=== PATIENT | female | born 1940 | race Caucasian/White ===

== ENCOUNTER → 2017-08-30 12:30 | Outpatient (CLI) | payer MEDICARE, OTHER, SELFPAY ==
--- NOTE | 2017-08-30 | CA_ITS ---
PROCEDURE: 2-D M-mode and color Doppler study INDICATIONS FOR THE TEST: Chest pain COPD Heart Murmur+ Tobacco Smoking Palpitations+ Fatigue Syncope Edema Hypertension+Diabetes Mellitus+ Rheumatic Fever+ SOB+MARTI+Obesity+Hyperlipidemia+ Family History HD Additional History PATIENT INFORMATION HEIGHT: 62 WEIGHT: 170 GENDER: Female B/P: 157/78 2-D/M-MODE INTERPRETATION: 2-D MEASUREMENTS OBSERVED VALUES IN CMS Right Ventricular Dimension (RVDd) 1.8 Interventricular Septum (Thickness)(IVsd) 1.2 Left Ventricular Internal Dimensions(LVIDd) 4.2 Left Ventricular Posterior Wall (Thickness)(LVPWd) 1.1 Aortic Root 2.5 Aortic Cusp Separation 2.0 Left Atrial Dimensions (LAD) 4.1 2D 1. Left atrium is mildly enlarged, left ventricle is normal size, there is mild concentric left ventricular hypertrophy, visually estimated ejection fraction 55% with no obvious regional wall motion abnormality. 2. The right atrium and right ventricle are normal size and contractility. 3. The aortic valve is thickened and calcified leaflet continue to display good mobility. 4. The mitral and tricuspid valve leaflets are minimally thickened. 5. The pulmonic valve is poorly visualized. 6. No significant pericardial effusion noted. DOPPLER INTERROGATION: Doppler interrogation of the aortic, mitral and tricuspid valvular presence of mild mitral and tricuspid regurgitation, calculated right ventricular systolic pressure is 36 mmHg, diastolic parameters are inconclusive. CONCLUSION: 1. Mildly enlarged left atrium, normal left ventricular size, mild concentric left ventricular hypertrophy, visually estimated ejection fraction 55% with no obvious regional wall motion abnormality, diastolic parameters are inconclusive. 2. Thickened and calcified aortic valve without significant aortic stenosis aortic insufficiency. 3. Mild mitral and tricuspid regurgitation 4. No significant pericardial effusion noted.
--- NOTE | 2017-08-30 13:47 | US_ITS ---
US kidney retroperitoneal comp HISTORY: Stage III renal disease ITS.REASON: AORTIC SYSTOLIC MURMUR/STAGE 3 CKD ORDERING PHYSICIAN: Gerry Morgan MD PATIENT AGE: 77 years COMPARISON: None FINDINGS: RIGHT KIDNEY: Right kidney measures 10 x 4 x 5.7 cm. A 1 7-m cyst is present in the lower pole the right kidney. A 12 mm x 14 mm cyst is present in the lower pole laterally. No cortical thinning or hydronephrosis. LEFT KIDNEY:Left kidney measures 9 x 5 x 5 cm. No hydronephrosis or cortical thinning OTHER FINDINGS: No obvious renal mass. Bilateral blood flow is present IMPRESSION: No hydronephrosis. 2 right renal cysts
== END ==
PROVIDERS: Family Provider Family Medicine; PCP Family Medicine; Visit Provider Family Medicine
DX: I35.8 Other nonrheumatic aortic valve disorders (principal); N18.3 Chronic kidney disease, stage 3 (moderate); I10 Essential (primary) hypertension
CPT/HCPCS: 76770; 93306

== ENCOUNTER → 2017-10-18 13:02 | Outpatient (CLI) | payer MEDICARE, OTHER, SELFPAY ==
--- NOTE | 2017-10-18 13:17 | XR_ITS ---
XR knee LT 3V HISTORY: ITS.REASON: LEFT FOOT AND KNEE PAIN ORDERING PHYSICIAN: Gerry Morgan MD PATIENT AGE: 77 years COMPARISON: FINDINGS: There are minimal osteoarthritic changes of the medial compartment and patellofemoral joint. No fracture or dislocation. No lytic or blastic change. A well-circumscribed rounded soft tissue calcification is present along the anterior medial aspect of the knee measuring 7 mm nonspecific could be due to old injury or a phlebolith. IMPRESSION: Minimal osteoarthritic change of the medial compartment and patellofemoral joint
--- NOTE | 2017-10-18 13:17 | XR_ITS ---
XR foot LT min 3V HISTORY: Left foot pain ITS.REASON: LEFT FOOT AND KNEE PAIN ORDERING PHYSICIAN: Gerry Morgan MD PATIENT AGE: 77 years FINDINGS: There is [id number] hallux valgus with first metatarsophalangeal angle of 32 degrees with mild osteoarthritic change of the first MTP joint and mild hypertrophic changes of the distal aspect of the first metatarsal. No acute fracture or dislocation. No lytic or blastic change. IMPRESSION: Hallux valgus with osteoarthritic change and hypertrophic change of the first MTP joint
== END ==
PROVIDERS: PCP Family Medicine; Visit Provider Family Medicine
DX: M25.562 Pain in left knee (principal); M79.672 Pain in left foot
CPT/HCPCS: 73562; 73630

== ENCOUNTER → 2017-11-07 11:55 | Outpatient (CLI) | payer MEDICARE, OTHER, SELFPAY ==
[2017-11-07 12:02] LABS: Microscopic, Urine URINE MICROSCOPIC (MICROSCOPIC)
[2017-11-07 12:22] LABS: Appearance,Urine CLEAR (Clear); Bilirubin,Urine Negative (Negative); Blood, Urine Negative (Negative); Color,Urine YELLOW (Yellow); Glucose,Urine (UA) Negative (Negative); Ketones,Urine Negative (Negative); Leukocyte Esterase,Urine Negative (Negative); Nitrate,Urine Negative (Negative); Protein,Urine Negative (Negative); Urobilinogen,Urine 0.2 EU/dl (0.2)
[2017-11-07 12:23] LABS: Basophils % 0.4 % (0.1-2.0); Eosinophils # 0.1 K/mm3 (0.0-0.4); Eosinophils % 1.6 % (0.1-12.0); Hematocrit 31.2 % (37.0-47.0); Hemoglobin 10.1 g/dL (12.2-16.2); Lymphocytes # 1.6 K/mm3 (0.7-4.5); Lymphocytes % 31.7 K/mm3 (10-50); Mean Corpuscular HGB Conc 32.2 g/dL (31.8-35.4); Mean Corpuscular Hemoglobin 28.1 pg (27.0-31.2); Mean Corpuscular Volume 87.3 fl (81-99); Mean Platelet Volume 7.9 fl (7.4-10.4); Monocytes # 0.4 K/mm3 (0.1-1.0); Monocytes % 8.3 % (1.7-9.3); Platelet Count 316 K/mm3 (142-424); Red Blood Count 3.58 M/mm3 (4.20-5.40); White Blood Count 5.1 K/mm3 (4.8-10.8)
[2017-11-07 12:35] LABS: Bacteria,Urine 1+ /lpf; Squamous Epithelial Cell,Urine Occasional #/hpf (0-5); WBC,Urine Occasional #/hpf (0-3)
[2017-11-07 13:14] LABS: Creatinine,Urine Random 65 mg/dL (20-320)
[2017-11-07 13:35] LABS: Albumin Level 3.4 gm/dL (3.4-5.0); Anion Gap 11.5 mEq/L (5-15); Blood Urea Nitrogen 49 mg/dL (7-18); Calcium 9.4 mg/dL (8.5-10.1); Carbon Dioxide 28 mmol/L (21.0-32.0); Chloride 105 mmol/L (98-107); Creatinine,Serum 1.84 mg/dL (0.55-1.02); Estimated Glomerular Filt Rate 27 ml/min (>60); GFR (African American) 32 ML/MIN (>60); Glucose 100 mg/dL (74-106); Phosphorous 4.6 mg/dL (2.4-4.9); Potassium 4.5 mmoL/L (3.5-5.1); Sodium 140 mmol/L (136-145)
== END ==
PROVIDERS: Visit Provider Internal Medicine Nephrology
DX: N18.9 Chronic kidney disease, unspecified (principal)
CPT/HCPCS: 36415; 80069; 81001; 82570; 84155; 85025

== ENCOUNTER → 2017-12-01 07:45 | Outpatient (CLI) | payer MEDICARE, OTHER, SELFPAY ==
--- NOTE | 2017-12-01 07:51 | AS_ITS ---
Renal Arterial Duplex Indications: 405.91 Unspecified renovascular hypertension. IMPRESSIONS 1. The right renal artery appears normal. 2. The left renal artery appears normal. 3. No evidence of renal artery stenosis, bilaterally. The left kidney is slightly smaller than the right. 2 Incidental right renal cysts. Complete renal arterial duplex. Duplex scan and Doppler flow study including spectral analysis, color and talavera scale imaging. Height: Height: 157.5cm. Height: 62in. Weight: Weight: 74.8kg. Weight: 164.7lb. Body mass index: BMI: 30.2kg/m^2. Body surface area: BSA: 1.84m^2. Location: Vascular laboratory. Patient status: Outpatient. Tables: Arterial flow: + +--------+--------+---------+ Location V sys V ed Resistive + +--------+--------+---------+ Aorta - mid 102cm/s 13cm/s 0.87 + +--------+--------+---------+ Right renal - proximal 104cm/s 15.5cm/s --------- + +--------+--------+---------+ Right renal - mid 99.4cm/s 16.6cm/s --------- + +--------+--------+---------+ Right renal - distal 94.4cm/s 22.4cm/s --------- + +--------+--------+---------+ Left renal - proximal 72.8cm/s 11.1cm/s --------- + +--------+--------+---------+ Left renal - mid 116cm/s 18.4cm/s --------- + +--------+--------+---------+ Left renal - distal 109cm/s 21.2cm/s --------- + +--------+--------+---------+ Left renal - Origin 80cm/s 18cm/s 0.78 + +--------+--------+---------+ Artery mapping: + +--------+ + Location Diameter Comment + +--------+ + Abdominal aorta - mid 1.9mm + +--------+ + Aorta - mid -------- 102/13 cm/s + +--------+ + Renal anatomy: + +-----+------+ Left Right + +-----+------+ Long axis 9.1cm 10.2cm + +-----+------+ Short axis 4.9cm 4.6cm + +-----+------+ Velocity ratios: + +-----+ V sys + +-----+ Right renal/aortic 1 + +-----+ Left renal/aortic 1.1 + +-----+ (Report amended ) Electronically signed by: Casey Solis [id number]
== END ==
PROVIDERS: Family Provider Family Medicine; PCP Family Medicine; Visit Provider Hospitalist
DX: N18.3 Chronic kidney disease, stage 3 (moderate) (principal)
CPT/HCPCS: 93976

== ENCOUNTER → 2017-12-12 10:12 | Outpatient (CLI) | payer MEDICARE, OTHER, SELFPAY ==
[2017-12-12 10:37] LABS: Microscopic, Urine URINE MICROSCOPIC (MICROSCOPIC)
[2017-12-12 11:32] LABS: Basophils % 0.6 % (0.1-2.0); Eosinophils # 0.1 K/mm3 (0.0-0.4); Eosinophils % 1.7 % (0.1-12.0); Hematocrit 34.2 % (37.0-47.0); Hemoglobin 10.4 g/dL (12.2-16.2); Lymphocytes # 1.8 K/mm3 (0.7-4.5); Lymphocytes % 36.4 K/mm3 (10-50); Mean Corpuscular HGB Conc 30.4 g/dL (31.8-35.4); Mean Corpuscular Hemoglobin 26.5 pg (27.0-31.2); Mean Corpuscular Volume 87.2 fl (81-99); Mean Platelet Volume 7.8 fl (7.4-10.4); Monocytes # 0.4 K/mm3 (0.1-1.0); Monocytes % 8.5 % (1.7-9.3); Neutrophils # 2.6 K/mm3 (1.8-7.8); Neutrophils % 52.8 % (37.0-80.0); Platelet Count 333 K/mm3 (142-424); Red Blood Count 3.92 M/mm3 (4.20-5.40); Red Cell Distribution Width 13.2 % (11.5-17.5); White Blood Count 4.9 K/mm3 (4.8-10.8)
[2017-12-12 12:28] LABS: Appearance,Urine CLEAR (Clear); Bilirubin,Urine Negative (Negative); Blood, Urine TRACE-I (Negative); Color,Urine YELLOW (Yellow); Glucose,Urine (UA) Negative (Negative); Ketones,Urine Negative (Negative); Leukocyte Esterase,Urine Negative (Negative); Nitrate,Urine Negative (Negative); PH,Urine 5.5 (5.0-8.5); Protein,Urine Negative (Negative); Specific Gravity, Urine 1.015 (1.005-1.030); Urobilinogen,Urine 0.2 EU/dl (0.2)
[2017-12-12 12:33] LABS: Chloride 107 mmol/L (98-107); Creatinine,Urine Random 54 mg/dL (20-320); Potassium 4.3 mmoL/L (3.5-5.1); Sodium 144 mmol/L (136-145); Total Protein,Urine Random 9.1 mg/dL (0.0-11.9)
[2017-12-12 12:45] LABS: Bacteria,Urine 1+ /lpf; Hyaline Casts,Urine Occasional #/lpf (0); Mucus,Urine Trace /lpf; RBC,Urine Occasional #/hpf (0-3); WBC,Urine Occasional #/hpf (0-3)
[2017-12-12 12:46] LABS: Squamous Epithelial Cell,Urine Occasional #/hpf (0-5)
[2017-12-12 13:06] LABS: Albumin Level 3.4 gm/dL (3.4-5.0); Anion Gap 17.3 mEq/L (5-15); Blood Urea Nitrogen 54 mg/dL (7-18); Calcium 9.4 mg/dL (8.5-10.1); Carbon Dioxide 24 mmol/L (21.0-32.0); Creatinine,Serum 1.91 mg/dL (0.55-1.02); Estimated Glomerular Filt Rate 26 ml/min (>60); Ferritin 37 ng/mL (8-388); GFR (African American) 31 ML/MIN (>60); Glucose 90 mg/dL (74-106); Phosphorous 4.9 mg/dL (2.4-4.9)
[2017-12-12 13:38] LABS: Hemoglobin A1C 5.7 % (0.0-7.0)
[2017-12-13 07:24] LABS: Immunoglobulin A, Qn 465 mg/dL (64-422); Immunoglobulin G, Qn 938 mg/dL (700-1600)
[2017-12-13 08:24] LABS: Iron 42 ug/dL (27-139); Iron Saturation 12 % (15-55); UIBC 310 ug/dL (118-369)
[2017-12-13 12:50] LABS: Immunoglobulin M, Qn 59 mg/dL (26-217); Vitamin D 25 Hydroxy 7.8 ng/mL (30.0-100.0)
[2017-12-14 06:53] LABS: Parathyroid Hormone Intact 137 pg/mL (15-65)
== END ==
PROVIDERS: Visit Provider Hospitalist
DX: N18.3 Chronic kidney disease, stage 3 (moderate) (principal); D64.9 Anemia, unspecified; Z79.899 Other long term (current) drug therapy
CPT/HCPCS: 36415; 80069; 81001; 82570; 82652; 82728; 82784; 83036; 83540; 83550; 83970; 84155; 85025

== ENCOUNTER → 2018-03-13 12:02 | Outpatient (CLI) | payer MEDICARE, OTHER, SELFPAY ==
[2018-03-13 12:07] LABS: Microscopic, Urine URINE MICROSCOPIC (MICROSCOPIC)
[2018-03-13 12:26] LABS: Appearance,Urine CLEAR (Clear); Basophils % 0.6 % (0.1-2.0); Bilirubin,Urine Negative (Negative); Blood, Urine Negative (Negative); Color,Urine YELLOW (Yellow); Eosinophils # 0.1 K/mm3 (0.0-0.4); Eosinophils % 1.8 % (0.1-12.0); Glucose,Urine (UA) Negative (Negative); Hematocrit 32.7 % (37.0-47.0); Hemoglobin 10.3 g/dL (12.2-16.2); Ketones,Urine Negative (Negative); Leukocyte Esterase,Urine Negative (Negative); Lymphocytes # 2.1 K/mm3 (0.7-4.5); Lymphocytes % 35.9 K/mm3 (10-50); Mean Corpuscular HGB Conc 31.5 g/dL (31.8-35.4); Mean Corpuscular Hemoglobin 27.9 pg (27.0-31.2); Mean Corpuscular Volume 88.7 fl (81-99); Mean Platelet Volume 8.1 fl (7.4-10.4); Monocytes # 0.5 K/mm3 (0.1-1.0); Monocytes % 8.6 % (1.7-9.3); Neutrophils # 3.1 K/mm3 (1.8-7.8); Neutrophils % 53.2 % (37.0-80.0); Nitrate,Urine Negative (Negative); Platelet Count 362 K/mm3 (142-424); Protein,Urine Negative (Negative); Red Blood Count 3.69 M/mm3 (4.20-5.40); Red Cell Distribution Width 13.7 % (11.5-17.5); Urobilinogen,Urine 0.2 EU/dl (0.2); White Blood Count 5.8 K/mm3 (4.8-10.8)
[2018-03-13 12:28] LABS: Creatinine,Urine Random 88 mg/dL (20-320); Total Protein,Urine Random 13.5 mg/dL (0.0-11.9)
[2018-03-13 12:46] LABS: Squamous Epithelial Cell,Urine Occasional #/hpf (0-5)
[2018-03-13 13:12] LABS: Albumin Level 3.5 gm/dL (3.4-5.0); Anion Gap 8.2 mEq/L (5-15); Blood Urea Nitrogen 49 mg/dL (7-18); Calcium 9.1 mg/dL (8.5-10.1); Carbon Dioxide 29 mmol/L (21.0-32.0); Chloride 106 mmol/L (98-107); Estimated Glomerular Filt Rate 23 ml/min (>60); GFR (African American) 28 ML/MIN (>60); Glucose 107 mg/dL (74-106); Phosphorous 4.9 mg/dL (2.4-4.9); Potassium 4.2 mmoL/L (3.5-5.1); Sodium 139 mmol/L (136-145)
[2018-03-15 07:49] LABS: Vitamin D 25 Hydroxy 26.8 ng/mL (30.0-100.0)
== END ==
PROVIDERS: PCP Family Medicine; Visit Provider Hospitalist
DX: N18.3 Chronic kidney disease, stage 3 (moderate) (principal); E55.9 Vitamin D deficiency, unspecified
CPT/HCPCS: 36415; 80069; 81001; 82570; 82652; 84155; 85025

== ENCOUNTER → 2018-06-06 13:16 | Outpatient (CLI) | payer MEDICARE, OTHER, SELFPAY ==
[2018-06-06 13:20] LABS: Microscopic, Urine URINE MICROSCOPIC (MICROSCOPIC)
[2018-06-06 13:45] LABS: Basophils # 0.1 K/mm3 (0-0.2); Basophils % 0.8 % (0.1-2.0); Eosinophils # 0.1 K/mm3 (0.0-0.4); Eosinophils % 1.3 % (0.1-12.0); Hemoglobin 10.9 g/dL (12.2-16.2); Lymphocytes % 31.9 % (10-50); Mean Corpuscular HGB Conc 31.2 g/dL (31.8-35.4); Mean Corpuscular Hemoglobin 27.7 pg (27.0-31.2); Mean Corpuscular Volume 88.9 fl (81-99); Mean Platelet Volume 7.7 fl (7.4-10.4); Monocytes # 0.4 K/mm3 (0.1-1.0); Monocytes % 6.8 % (1.7-9.3); Neutrophils # 3.7 K/mm3 (1.8-7.8); Neutrophils % 59.2 % (37.0-80.0); Platelet Count 367 K/mm3 (142-424); Red Blood Count 3.93 M/mm3 (4.20-5.40); Red Cell Distribution Width 13.3 % (11.5-17.5); White Blood Count 6.3 K/mm3 (4.8-10.8)
[2018-06-06 13:47] LABS: Appearance,Urine CLEAR (Clear); Bilirubin,Urine Negative (Negative); Blood, Urine Negative (Negative); Color,Urine YELLOW (Yellow); Glucose,Urine (UA) Negative (Negative); Ketones,Urine Negative (Negative); Leukocyte Esterase,Urine Negative (Negative); Nitrate,Urine Negative (Negative); Protein,Urine Negative (Negative); Specific Gravity, Urine 1.015 (1.005-1.030); Urobilinogen,Urine 0.2 EU/dl (0.2)
[2018-06-06 13:52] LABS: Creatinine,Urine Random 105 mg/dL (20-320); Total Protein,Urine Random 10.3 mg/dL (0.0-11.9)
[2018-06-06 14:13] LABS: Bacteria,Urine Trace /lpf; Squamous Epithelial Cell,Urine Occasional #/hpf (0-5)
[2018-06-06 14:56] LABS: Albumin Level 3.5 gm/dL (3.4-5.0); Anion Gap 15.1 mEq/L (5-15); Blood Urea Nitrogen 40 mg/dL (7-18); Calcium 9.1 mg/dL (8.5-10.1); Carbon Dioxide 26 mmol/L (21.0-32.0); Chloride 104 mmol/L (98-107); Creatinine,Serum 2.06 mg/dL (0.55-1.02); Estimated Glomerular Filt Rate 23 ml/min (>60); GFR (African American) 28 ML/MIN (>60); Glucose 110 mg/dL (74-106); Phosphorous 4.7 mg/dL (2.4-4.9); Potassium 4.1 mmoL/L (3.5-5.1); Sodium 141 mmol/L (136-145); Uric Acid 8.9 mg/dL (2.6-7.2)
== END ==
PROVIDERS: Visit Provider Hospitalist
DX: N18.3 Chronic kidney disease, stage 3 (moderate) (principal)
CPT/HCPCS: 36415; 80069; 81001; 82570; 84155; 84550; 85025

== ENCOUNTER → 2018-10-09 13:34 | Outpatient (CLI) | payer MEDICARE, OTHER, SELFPAY ==
[2018-10-09 13:38] LABS: Microscopic, Urine URINE MICROSCOPIC (MICROSCOPIC)
[2018-10-09 14:11] LABS: Appearance,Urine CLEAR (Clear); Bilirubin,Urine Negative (Negative); Blood, Urine Negative (Negative); Color,Urine YELLOW (Yellow); Glucose,Urine (UA) Negative (Negative); Ketones,Urine Negative (Negative); Leukocyte Esterase,Urine Negative (Negative); Nitrate,Urine Negative (Negative); Protein,Urine Negative (Negative); Specific Gravity, Urine 1.015 (1.005-1.030); Urobilinogen,Urine 0.2 EU/dl (0.2)
[2018-10-09 14:29] LABS: Bacteria,Urine 2+ /lpf
[2018-10-09 14:42] LABS: Basophils % 0.6 % (0.1-2.0); Eosinophils # 0.1 K/mm3 (0.0-0.4); Eosinophils % 2.2 % (0.1-12.0); Hematocrit 33.5 % (37.0-47.0); Hemoglobin 10.7 g/dL (12.2-16.2); Lymphocytes # 1.5 K/mm3 (0.7-4.5); Mean Corpuscular HGB Conc 31.9 g/dL (31.8-35.4); Mean Corpuscular Hemoglobin 28.1 pg (27.0-31.2); Mean Corpuscular Volume 88.1 fl (81-99); Mean Platelet Volume 7.6 fl (7.4-10.4); Monocytes # 0.4 K/mm3 (0.1-1.0); Monocytes % 7.4 % (1.7-9.3); Neutrophils # 2.8 K/mm3 (1.8-7.8); Neutrophils % 57.9 % (37.0-80.0); Platelet Count 298 K/mm3 (142-424); Red Blood Count 3.81 M/mm3 (4.20-5.40); Red Cell Distribution Width 13.2 % (11.5-17.5); White Blood Count 4.8 K/mm3 (4.8-10.8)
[2018-10-09 15:45] LABS: Albumin Level 3.6 gm/dL (3.4-5.0); Anion Gap 16.5 mEq/L (5-15); Blood Urea Nitrogen 42 mg/dL (7-18); Calcium 9.1 mg/dL (8.5-10.1); Carbon Dioxide 25 mmol/L (21.0-32.0); Chloride 104 mmol/L (98-107); Creatinine,Serum 2.45 mg/dL (0.55-1.02); Estimated Glomerular Filt Rate 19 ml/min (>60); Ferritin 48 ng/mL (8-388); GFR (African American) 23 ML/MIN (>60); Glucose 98 mg/dL (74-106); Phosphorous 4.5 mg/dL (2.4-4.9); Potassium 4.5 mmoL/L (3.5-5.1); Sodium 141 mmol/L (136-145)
[2018-10-11 09:17] LABS: Iron 46 ug/dL (27-139); UIBC 285 ug/dL (118-369)
[2018-10-11 12:43] LABS: Iron Saturation 14 % (15-55)
[2018-10-11 16:08] LABS: Parathyroid Hormone Intact 149 pg/mL (15-65)
[2018-10-12 08:18] LABS: Vitamin D 25 Hydroxy 37.6 ng/mL (30.0-100.0)
== END ==
PROVIDERS: Visit Provider Internal Medicine Nephrology
DX: D64.9 Anemia, unspecified (principal); N18.3 Chronic kidney disease, stage 3 (moderate); E55.9 Vitamin D deficiency, unspecified; R82.90 Unspecified abnormal findings in urine
CPT/HCPCS: 36415; 80069; 81001; 82652; 82728; 83540; 83550; 83970; 85025; 87086

== ENCOUNTER → 2018-10-24 11:48 | Outpatient (CLI) | payer MEDICARE, OTHER, SELFPAY ==
[2018-10-24 11:52] LABS: Microscopic, Urine URINE MICROSCOPIC (MICROSCOPIC)
[2018-10-24 13:15] LABS: Appearance,Urine CLEAR (Clear); Bilirubin,Urine Negative (Negative); Blood, Urine Negative (Negative); Color,Urine YELLOW (Yellow); Glucose,Urine (UA) Negative (Negative); Ketones,Urine Negative (Negative); Leukocyte Esterase,Urine Negative (Negative); Nitrate,Urine Negative (Negative); PH,Urine 5.5 (5.0-8.5); Protein,Urine Negative (Negative); Urobilinogen,Urine 0.2 EU/dl (0.2)
[2018-10-24 14:11] LABS: Albumin Level 3.5 gm/dL (3.4-5.0); Anion Gap 15.3 mEq/L (5-15); Blood Urea Nitrogen 44 mg/dL (7-18); Calcium 9.4 mg/dL (8.5-10.1); Carbon Dioxide 23 mmol/L (21.0-32.0); Chloride 104 mmol/L (98-107); Creatinine,Serum 1.99 mg/dL (0.55-1.02); Estimated Glomerular Filt Rate 24 ml/min (>60); GFR (African American) 29 ML/MIN (>60); Glucose 107 mg/dL (74-106); Phosphorous 4.2 mg/dL (2.4-4.9); Potassium 4.3 mmoL/L (3.5-5.1); Sodium 138 mmol/L (136-145)
[2018-10-24 14:39] LABS: Squamous Epithelial Cell,Urine Occasional #/hpf (0-5); WBC,Urine Occasional #/hpf (0-3)
[2018-10-24 14:40] LABS: Bacteria,Urine 2+ /lpf; Uric Acid Crystals,Urine Trace /lpf
== END ==
PROVIDERS: Visit Provider Hospitalist
DX: N18.3 Chronic kidney disease, stage 3 (moderate) (principal); R82.90 Unspecified abnormal findings in urine
CPT/HCPCS: 36415; 80069; 81001; 87086

== ENCOUNTER → 2018-11-07 10:55 | Outpatient (POV) | payer MEDICARE, OTHER, SELFPAY | PROVIDERS: Visit Provider Dermatology | DX: Z00.00 Encounter for general adult medical examination without abnormal findings (principal) ==

== ENCOUNTER → 2018-12-05 10:18 | Outpatient (POV) | payer MEDICARE, OTHER, SELFPAY | PROVIDERS: Visit Provider Dermatology | DX: Z00.00 Encounter for general adult medical examination without abnormal findings (principal) ==

== ENCOUNTER → 2018-12-19 14:40 | Outpatient (CLI) | payer MEDICARE, OTHER, SELFPAY ==
[2018-12-19 14:50] LABS: Microscopic, Urine URINE MICROSCOPIC (MICROSCOPIC)
[2018-12-19 15:18] LABS: Appearance,Urine CLEAR (Clear); Bilirubin,Urine Negative (Negative); Blood, Urine Negative (Negative); Color,Urine YELLOW (Yellow); Glucose,Urine (UA) Negative (Negative); Ketones,Urine Negative (Negative); Leukocyte Esterase,Urine 1+ (Negative); Nitrate,Urine Negative (Negative); PH,Urine 5.5 (5.0-8.5); Protein,Urine Negative (Negative); Urobilinogen,Urine 0.2 EU/dl (0.2)
[2018-12-19 15:23] LABS: Basophils % 0.4 % (0.1-2.0); Eosinophils # 0.1 K/mm3 (0.0-0.4); Eosinophils % 1.2 % (0.1-12.0); Hematocrit 33.6 % (37.0-47.0); Hemoglobin 10.1 g/dL (12.2-16.2); Lymphocytes # 0.8 K/mm3 (0.7-4.5); Lymphocytes % 13.6 % (10-50); Mean Corpuscular HGB Conc 30.1 g/dL (31.8-35.4); Mean Corpuscular Hemoglobin 27.3 pg (27.0-31.2); Mean Corpuscular Volume 90.6 fl (81-99); Mean Platelet Volume 8.3 fl (7.4-10.4); Monocytes # 0.2 K/mm3 (0.1-1.0); Monocytes % 3.6 % (1.7-9.3); Neutrophils # 4.9 K/mm3 (1.8-7.8); Neutrophils % 81.1 % (37.0-80.0); Platelet Count 281 K/mm3 (142-424); Red Cell Distribution Width 14.2 % (11.5-17.5)
[2018-12-19 16:23] LABS: Mucus,Urine Trace /lpf; Squamous Epithelial Cell,Urine Occasional #/hpf (0-5); WBC,Urine 20-50 #/hpf (0-3)
[2018-12-19 16:55] LABS: Albumin Level 3.1 gm/dL (3.4-5.0); Anion Gap 16.5 mEq/L (5-15); Blood Urea Nitrogen 52 mg/dL (7-18); Calcium 8.6 mg/dL (8.5-10.1); Carbon Dioxide 25 mmol/L (21.0-32.0); Chloride 105 mmol/L (98-107); Creatinine,Serum 2.42 mg/dL (0.55-1.02); Estimated Glomerular Filt Rate 19 ml/min (>60); Ferritin 66 ng/mL (8-388); GFR (African American) 24 ML/MIN (>60); Glucose 124 mg/dL (74-106); Phosphorous 3.6 mg/dL (2.4-4.9); Potassium 4.5 mmoL/L (3.5-5.1); Sodium 142 mmol/L (136-145)
[2018-12-21 08:25] LABS: Iron 38 ug/dL (27-139); UIBC 245 ug/dL (118-369)
[2018-12-21 19:11] LABS: Iron Saturation 13 % (15-55); Parathyroid Hormone Intact 142 pg/mL (15-65)
== END ==
PROVIDERS: Internal Medicine Nephrology; Visit Provider Hospitalist
DX: D64.9 Anemia, unspecified (principal); N25.81 Secondary hyperparathyroidism of renal origin; N18.3 Chronic kidney disease, stage 3 (moderate); R82.90 Unspecified abnormal findings in urine
CPT/HCPCS: 36415; 80069; 81001; 82728; 83540; 83550; 83970; 85025; 87086; 87088; 87186

== ENCOUNTER → 2018-12-26 12:05 | Outpatient (CLI) | payer MEDICARE, OTHER, SELFPAY ==
[2018-12-26 12:10] LABS: Microscopic, Urine URINE MICROSCOPIC (MICROSCOPIC)
[2018-12-26 12:32] LABS: Appearance,Urine CLEAR (Clear); Bilirubin,Urine Negative (Negative); Blood, Urine Negative (Negative); Color,Urine YELLOW (Yellow); Glucose,Urine (UA) Negative (Negative); Ketones,Urine Negative (Negative); Leukocyte Esterase,Urine TRACE (Negative); Nitrate,Urine POSITIVE (Negative); PH,Urine 5.5 (5.0-8.5); Protein,Urine Negative (Negative); Urobilinogen,Urine 0.2 EU/dl (0.2)
[2018-12-26 13:05] LABS: Bacteria,Urine 1+ /lpf; RBC,Urine Occasional #/hpf (0-3)
[2018-12-26 13:06] LABS: Mucus,Urine Trace /lpf
== END ==
PROVIDERS: Visit Provider Internal Medicine Nephrology
DX: N18.3 Chronic kidney disease, stage 3 (moderate) (principal); R82.90 Unspecified abnormal findings in urine
CPT/HCPCS: 81001; 87086

== ENCOUNTER 2019-01-03 09:48 | Outpatient (CLI) | payer MEDICARE, OTHER, SELFPAY ==
[2019-01-03 10:11] VITALS: BP 140/59; PULSE 62; RESP 18; TEMP 36.9; O2SAT 96
[2019-01-03 10:26] VITALS: BP 138/65; PULSE 64; RESP 20; O2SAT 97
[2019-01-03 10:41] VITALS: BP 141/69; PULSE 68; RESP 20; O2SAT 96
[2019-01-03 10:50] VITALS: BP 137/67; PULSE 67; RESP 20; O2SAT 97
== END 2019-01-03 10:50 | disposition home or self-care (01) ==
LOC: INF 09:48
PROVIDERS: Visit Provider Internal Medicine Nephrology
DX: D50.9 Iron deficiency anemia, unspecified (principal); N18.3 Chronic kidney disease, stage 3 (moderate)
CPT/HCPCS: 96365; J1439

== ENCOUNTER 2019-01-10 09:59 | Outpatient (CLI) | payer MEDICARE, OTHER, SELFPAY ==
[2019-01-10 10:14] VITALS: BP 128/56; PULSE 53; RESP 18; TEMP 36.5; O2SAT 94
[2019-01-10 10:55] VITALS: BP 138/68; PULSE 52; RESP 18; O2SAT 96
== END 2019-01-10 10:55 | disposition home or self-care (01) ==
LOC: INF 09:59
PROVIDERS: Visit Provider Internal Medicine Nephrology
DX: D50.9 Iron deficiency anemia, unspecified (principal); N18.3 Chronic kidney disease, stage 3 (moderate)
CPT/HCPCS: 96365; J1439

== ENCOUNTER → 2019-02-20 11:54 | Outpatient (CLI) | payer MEDICARE, OTHER, SELFPAY ==
[2019-02-20 12:01] LABS: Microscopic, Urine URINE MICROSCOPIC (MICROSCOPIC)
[2019-02-20 12:47] LABS: Basophils % 0.4 % (0.1-2.0); Eosinophils # 0.1 K/mm3 (0.0-0.4); Eosinophils % 1.7 % (0.1-12.0); Hematocrit 35.3 % (37.0-47.0); Lymphocytes # 1.4 K/mm3 (0.7-4.5); Lymphocytes % 21.6 % (10-50); Mean Corpuscular Hemoglobin 29.6 pg (27.0-31.2); Mean Corpuscular Volume 95.3 fl (81-99); Mean Platelet Volume 7.3 fl (7.4-10.4); Monocytes # 0.4 K/mm3 (0.1-1.0); Monocytes % 5.8 % (1.7-9.3); Neutrophils # 4.7 K/mm3 (1.8-7.8); Neutrophils % 70.5 % (37.0-80.0); Platelet Count 301 K/mm3 (142-424); Red Cell Distribution Width 15.7 % (11.5-17.5); White Blood Count 6.6 K/mm3 (4.8-10.8)
[2019-02-20 13:05] LABS: Appearance,Urine CLEAR (Clear); Bilirubin,Urine Negative (Negative); Blood, Urine Negative (Negative); Color,Urine YELLOW (Yellow); Glucose,Urine (UA) Negative (Negative); Ketones,Urine Negative (Negative); Leukocyte Esterase,Urine TRACE (Negative); Nitrate,Urine POSITIVE (Negative); PH,Urine 5.5 (5.0-8.5); Protein,Urine Negative (Negative); Specific Gravity, Urine 1.015 (1.005-1.030); Urobilinogen,Urine 0.2 EU/dl (0.2)
[2019-02-20 13:19] LABS: Bacteria,Urine 3+ /lpf; Squamous Epithelial Cell,Urine Occasional #/hpf (0-5)
[2019-02-20 13:52] LABS: Albumin Level 3.2 gm/dL (3.4-5.0); Anion Gap 11.4 mEq/L (5-15); Blood Urea Nitrogen 45 mg/dL (7-18); Calcium 8.9 mg/dL (8.5-10.1); Carbon Dioxide 29 mmol/L (21.0-32.0); Chloride 106 mmol/L (98-107); Creatinine,Serum 1.96 mg/dL (0.55-1.02); Estimated Glomerular Filt Rate 25 ml/min (>60); Ferritin 564 ng/mL (8-388); GFR (African American) 30 ML/MIN (>60); Glucose 97 mg/dL (74-106); Phosphorous 4.1 mg/dL (2.4-4.9); Potassium 4.4 mmoL/L (3.5-5.1); Sodium 142 mmol/L (136-145)
[2019-02-21 09:11] LABS: Iron 118 ug/dL (27-139); UIBC 140 ug/dL (118-369)
[2019-02-21 09:49] LABS: Iron Saturation 46 % (15-55)
== END ==
PROVIDERS: Visit Provider Internal Medicine Nephrology
DX: D64.9 Anemia, unspecified (principal); N18.3 Chronic kidney disease, stage 3 (moderate); R82.90 Unspecified abnormal findings in urine
CPT/HCPCS: 36415; 80069; 81001; 82728; 83540; 83550; 85025; 87086; 87088; 87186

== ENCOUNTER → 2019-02-28 13:40 | Outpatient (CLI) | payer MEDICARE, OTHER, SELFPAY ==
[2019-02-28 13:45] LABS: Microscopic, Urine URINE MICROSCOPIC (MICROSCOPIC)
[2019-02-28 15:39] LABS: Appearance,Urine CLEAR (Clear); Bilirubin,Urine Negative (Negative); Blood, Urine Negative (Negative); Color,Urine YELLOW (Yellow); Glucose,Urine (UA) Negative (Negative); Ketones,Urine Negative (Negative); Leukocyte Esterase,Urine TRACE (Negative); Nitrate,Urine POSITIVE (Negative); PH,Urine 5.5 (5.0-8.5); Protein,Urine Negative (Negative); Urobilinogen,Urine 0.2 EU/dl (0.2)
[2019-02-28 15:54] LABS: Bacteria,Urine 2+ /lpf
== END ==
PROVIDERS: Visit Provider Internal Medicine Nephrology
DX: N18.3 Chronic kidney disease, stage 3 (moderate) (principal); R82.90 Unspecified abnormal findings in urine
CPT/HCPCS: 81001; 87086; 87088; 87186

== ENCOUNTER → 2019-07-09 13:00 | Outpatient (CLI) | payer MEDICARE, OTHER, SELFPAY ==
[2019-07-09 13:09] LABS: Microscopic, Urine URINE MICROSCOPIC (MICROSCOPIC)
[2019-07-09 13:30] LABS: Appearance,Urine CLEAR (Clear); Bilirubin,Urine Negative (Negative); Blood, Urine Negative (Negative); Color,Urine YELLOW (Yellow); Glucose,Urine (UA) Negative (Negative); Ketones,Urine Negative (Negative); Leukocyte Esterase,Urine TRACE (Negative); Nitrate,Urine POSITIVE (Negative); Protein,Urine TRACE (Negative); Specific Gravity, Urine 1.025 (1.005-1.030); Urobilinogen,Urine 0.2 EU/dl (0.2)
[2019-07-09 13:34] LABS: Basophils % 0.4 % (0.1-2.0); Eosinophils # 0.1 K/mm3 (0.0-0.4); Eosinophils % 1.2 % (0.1-12.0); Hematocrit 37.4 % (37.0-47.0); Lymphocytes # 1.4 K/mm3 (0.7-4.5); Lymphocytes % 20.2 % (10-50); Mean Corpuscular HGB Conc 32.2 g/dL (31.8-35.4); Mean Corpuscular Hemoglobin 30.6 pg (27.0-31.2); Mean Platelet Volume 8.5 fl (7.4-10.4); Monocytes # 0.4 K/mm3 (0.1-1.0); Monocytes % 5.5 % (1.7-9.3); Neutrophils % 72.7 % (37.0-80.0); Platelet Count 313 K/mm3 (142-424); Red Blood Count 3.94 M/mm3 (4.20-5.40); Red Cell Distribution Width 12.8 % (11.5-17.5); White Blood Count 6.9 K/mm3 (4.8-10.8)
[2019-07-09 14:32] LABS: Albumin Level 3.4 gm/dL (3.4-5.0); Anion Gap 14.1 mEq/L (5-15); Blood Urea Nitrogen 40 mg/dL (7-18); Calcium 9.4 mg/dL (8.5-10.1); Carbon Dioxide 28 mmol/L (21.0-32.0); Chloride 104 mmol/L (98-107); Creatinine,Serum 2.05 mg/dL (0.55-1.02); Estimated Glomerular Filt Rate 23 ml/min (>60); Ferritin 364 ng/mL (8-388); GFR (African American) 28 ML/MIN (>60); Glucose 94 mg/dL (74-106); Phosphorous 4.6 mg/dL (2.4-4.9); Potassium 4.1 mmoL/L (3.5-5.1); Sodium 142 mmol/L (136-145)
[2019-07-09 14:45] LABS: Bacteria,Urine 2+ /lpf; RBC,Urine Occasional #/hpf (0-3); WBC,Urine 20-50 #/hpf (0-3)
[2019-07-09 14:46] LABS: Amorphous Sediment,Urine 2+ /lpf
[2019-07-10 08:13] LABS: Iron 77 ug/dL (27-139); UIBC 216 ug/dL (118-369)
[2019-07-11 07:40] LABS: Iron Saturation 26 % (15-55)
== END ==
PROVIDERS: Visit Provider Internal Medicine Nephrology
DX: D64.9 Anemia, unspecified (principal); N18.3 Chronic kidney disease, stage 3 (moderate); R82.90 Unspecified abnormal findings in urine
CPT/HCPCS: 36415; 80069; 81001; 82728; 83540; 83550; 85025; 87086; 87088; 87186

== ENCOUNTER → 2020-04-01 10:35 | Outpatient (CLI) | payer MEDICARE, OTHER, SELFPAY ==
--- NOTE | 2020-04-01 | CA_ITS ---
APPROVED REPORT EXAM: Comprehensive 2D, Doppler, and color-flow Echocardiogram Production Administrator: Harika Simon CRT Ht: 5 ft 2 in Wt: 180lbs BSA: 1.83 BP: 120/76 mmHg Indications: Murmur, Diabetes, Obesity, Dizziness and Vertigo, Hyperlipidemia, Hypertension/HDD 2D Dimensions LVOT 1.88 cm (M/F) 1.5-2.5 M-Mode Dimensions RVDd 3.11 cm (0.9-2.6) LVDd 4.40 cm (3.5-5.7) LVDs 3.00 cm (3.5-5.7) IVSd 1.29 cm (0.6-1.1) PWd 1.07 cm (0.6-1.1) EF (Teich) 60.10% FS 31.80% EDV (Teich) 87.70 mL ESV (Teich) 35.00 mL LV Diastology E/A Ratio 0.75 Aortic Valve LVOT Max 161.00 (70-110 cm/s) LVOT VTI 31.29 cm Mitral Valve MV A Velocity 99.00 (40-130 cm/s) Left Ventricle Left atrium is mildly enlarged, left ventricle is normal size, mild concentric left ventricular hypertrophy, visually estimated ejection fraction 55% with no regional wall motion abnormality, grade 1 diastolic dysfunction seen without tissue Doppler evidence of raise left atrial pressure. Right Ventricle Right atrium and right ventricle are mildly enlarged with normal contractility. Aortic Valve Aortic valve is thickened and calcified, leaflet continue to display good mobility, there is no aortic stenosis or aortic insufficiency. Mitral Valve Mitral valve leaflets are minimally thickened, there is mild mitral regurgitation. Tricuspid Valve Tricuspid valve grossly normal, there is mild tricuspid regurgitation. Pulmonic Valve Pulmonic valve is poorly visualized. Great Vessels Aortic root is normal size. Pericardium No significant pericardial effusion noted. Conclusion 1. Mildly in the left atrium, normal left ventricular size, mild concentric left ventricular hypertrophy, visually estimated ejection fraction 55% with no regional wall motion abnormality, grade 1 diastolic dysfunction seen without tissue Doppler evidence of raise left atrial pressure. 2. Thickened and calcified aortic valve without aortic stenosis or aortic insufficiency. 3. Mild mitral and tricuspid regurgitation. 4. No significant pericardial effusion noted. Electronically signed by : Ashok Goodson, 04/01/2020 20:51:42
== END ==
PROVIDERS: PCP Family Medicine; Visit Provider Family Medicine
DX: R55 Syncope and collapse (principal); I35.8 Other nonrheumatic aortic valve disorders
CPT/HCPCS: 93306

== ENCOUNTER → 2020-11-18 07:05 | Outpatient (CLI) | payer MEDICARE, OTHER, SELFPAY ==
[2020-11-18 07:10] LABS: Microscopic, Urine URINE MICROSCOPIC (MICROSCOPIC)
[2020-11-18 07:35] LABS: Appearance,Urine CLEAR (Clear); Bilirubin,Urine Negative (Negative); Blood, Urine Negative (Negative); Color,Urine YELLOW (Yellow); Glucose,Urine (UA) Negative (Negative); Ketones,Urine Negative (Negative); Leukocyte Esterase,Urine Negative (Negative); Nitrate,Urine Negative (Negative); PH,Urine 5.5 (5.0-8.5); Protein,Urine Negative (Negative); Specific Gravity, Urine 1.015 (1.005-1.030); Urobilinogen,Urine 0.2 EU/dl (0.2)
[2020-11-18 07:59] LABS: Basophils % 0.4 % (0.1-2.0); Eosinophils # 0.1 K/mm3 (0.0-0.4); Hemoglobin 11.2 g/dL (12.2-16.2); Lymphocytes # 2.4 K/mm3 (0.7-4.5); Mean Corpuscular HGB Conc 31.9 g/dL (31.8-35.4); Mean Corpuscular Hemoglobin 29.1 pg (27.0-31.2); Mean Corpuscular Volume 91.2 fl (81-99); Monocytes # 0.4 K/mm3 (0.1-1.0); Monocytes % 6.1 % (1.7-9.3); Neutrophils # 3.6 K/mm3 (1.8-7.8); Neutrophils % 54.5 % (37.0-80.0); Platelet Count 297 K/mm3 (142-424); Red Blood Count 3.84 M/mm3 (4.20-5.40); Red Cell Distribution Width 13.7 % (11.5-17.5); White Blood Count 6.5 K/mm3 (4.8-10.8)
[2020-11-18 08:39] LABS: Albumin Level 3.9 g/dl (3.5-5.0); Chloride 106 mmol/L (98-107); Sodium 140 mmol/L (136-145)
[2020-11-18 08:42] LABS: Anion Gap 14.3 mEq/L (5-15); Carbon Dioxide 24 mmol/L (22.0-30.0); Iron 60 ug/dL (37-170); Potassium 4.3 mmoL/L (3.5-5.1)
[2020-11-18 08:43] LABS: Calcium 9.7 mg/dl (8.4-10.2); Glucose 100 mg/dl (74-100)
[2020-11-18 08:52] LABS: Total Iron Binding Capacity 278 ug/dL (265-497)
[2020-11-18 09:17] LABS: Ferritin 253 ng/ml (11.1-264)
[2020-11-18 09:31] LABS: Blood Urea Nitrogen 44 mg/dl (7-17)
[2020-11-18 09:32] LABS: Estimated Glomerular Filt Rate 21 ml/min (>60); GFR (African American) 25 ML/MIN (>60)
== END ==
PROVIDERS: Visit Provider Internal Medicine Nephrology
DX: D64.9 Anemia, unspecified (principal); N18.30 Chronic kidney disease, stage 3 unspecified
CPT/HCPCS: 36415; 80069; 81001; 82728; 83540; 83550; 85025

== ENCOUNTER 2021-01-11 21:23 | Emergency (ER) | payer MEDICARE, OTHER, SELFPAY ==
[2021-01-11 21:30] VITALS: BP 150/65; PULSE 81; RESP 18; TEMP 37; O2SAT 99; BMI 34.7
--- NOTE | 2021-01-11 21:35 | XR_ITS ---
PROCEDURE INFORMATION: Exam: XR Chest Exam date and time: 01/11/2021 9:35 PM Age: 80 years old Clinical indication: Patient HX: Cough, no other chest symptoms TECHNIQUE: Imaging protocol: XR of the chest. Views: 2 views. COMPARISON: No relevant prior studies available. FINDINGS: Lungs: Mild bibasilar atelectasis. Pleural spaces: No pleural effusion or pneumothorax. Heart/Mediastinum: Mild cardiomegaly without overt failure. Bones/joints: Bones demineralized. IMPRESSION: Hypoinflation with mild cardiomegaly and bibasilar atelectasis.
--- NOTE | 2021-01-11 21:35 | ECG_ITS ---
APPROVED REPORT Exam: Resting ECG HR:66 bpm ECG Measurements Heart Rate 66 AXES RI 116 P 40 QRSd 84 QRS 36 QT 396 T 51 QTc 415 Conclusion Normal sinus rhythm Cannot rule out Anterior infarct, age undetermined Abnormal ECG Electronically signed by : Gerry Gilliam, 01/12/2021 22:10:52
--- NOTE | 2021-01-11 21:43 | HMH.EDURI ---
ED Disposition Clinical Impression: COVID-19 with pulmonary comorbidity, Chronic renal insufficiency, stage IV (severe) Disposition: Home, Self-Care Condition on Discharge: Good Instructions: DI for COVID-19 (Suspected or Confirmed ) Additional Instructions: call pcp in am Referrals: Gerry Morgan MD [Primary Care Provider] - - Critical Care Critical Care Time: No Attestation: On 01/11/21, the high probability of a clinically significant, sudden or life threatening deterioration of the following system(s) required my full and direct attention, intervention and personal management. The time I documented below is in addition to time spent performing reported procedures but includes the following listed in this critical care notation. Medical Decision Making - Medical Records Medical records reviewed: Yes: I reviewed the patient's medical records. - Tunde Inquiry Pt receiving controlled substance: No Vital Signs: 01/11/21 21:30 01/11/21 21:52 Temperature 98.6 F Temperature Source Oral Pulse Rate 71 Pulse Rate [Right Brachial] 81 Respiratory Rate 18 Blood Pressure 140/53 L Blood Pressure [Left Arm] 150/65 H Blood Pressure Mean [Left Arm] 93 Blood Pressure Source Automatic Cuff Blood Pressure Source [Left Arm] Automatic Cuff Blood Pressure Position Sitting Blood Pressure Position [Left Arm] Sitting 02 Sat by Pulse Oximetry 99 96 Oxygen Delivery Method Room Air Room Air - Lab Data Lab results reviewed: Yes: I reviewed the patient's lab results. Lab Results 01/11/21 21:37: WBC 5.0, RBC 4.06 L, Hgb 12.3, Hct 37.2, MCV 91.6, MCH 30.2, MCHC 33.0, RDW 14.0, Plt Count 254, MPV 8.8, Neut % (Auto) 46.5, Lymph % (Auto) 41.4, [place] % (Auto) 10.1 H, Eos % (Auto) 0.1, Baso % (Auto) 1.8, Neut # (Auto) 2.4, Lymph # (Auto) 2.1, [place] # (Auto) 0.5, Eos # (Auto) 0.0, Baso # (Auto) 0.1, ESR 62 H 01/11/21 21:37: Sodium 141, Potassium 4.2, Chloride 104, Carbon Dioxide 24, Anion Gap 17.2 H, BUN 44 H, Creatinine 3.00 H, Estimated Creat Clear 21, Estimated GFR 15 L*, Est GFR ( Amer) 18 L*, Glucose 107 H, Calcium 9.2, Total Bilirubin 0.5, AST 27, ALT 10 L, Alkaline Phosphatase 69, C-Reactive Protein 3.6, NT-Pro-B Natriuret Pep 258, Total Protein 7.5, Albumin 4.4, Globulin 3.1, Albumin/Globulin Ratio 1.4 01/11/21 21:37: Troponin I < 0.01, Procalcitonin 0.451 01/11/21 21:37: SARS-CoV-2 (PCR) Detected A, Influenza A Untype (PCR) Not detected, Influenza Type B (PCR) Not detected Result diagrams: 01/11/21 21:37 01/11/21 21:37 Orders (Tests/Meds): ED MEDICATIONS Discontinued Medications Generic Name Dose Route Start Last Admin Trade Name Freq PRN Reason Stop Dose Admin Dexamethasone Sodium Phosphate 10 mg 01/11/21 22:50 Dexamethasone 4mg/Ml 1ml Vial IV 01/11/21 22:51 ONCE ONE ORDERS Category Date Time Status Troponin I Q3H Lab 01/12/21 01:00 Ordered Troponin I Q3H Lab 01/12/21 04:00 Ordered - Radiology Data #1 Image(s): Chest Image Reviewed: Yes I reviewed the patient's radiology image, Yes I have reviewed radiologist's interpretation Preliminary Findings: Abnormal - ECG Data Tracing #1 Normal Sinus Rhythm: Yes Ischemic changes: non-specific ST-T wave changes - Physician Consults Physician Consulted: adam Reason -: Pt condition Medical Decision Narrative: has covid -19 -no prev positive and no vaccine - has chronic renal failure - will hold losarten and ask pt to call pcp in am URI/Sore Throat HPI - General Chief Complaint: Upper Respiratory Infection Stated Complaint: cough,weakness Time Seen by Provider: 01/11/21 21:40 Mode of Arrival: Family Vehicle Source of Information: Patient, Spouse, Medical Record Limitations: No Limitations Description of Symptoms (Recalled from ER Triage Doc. by RN): pt describes having had sinus drainage the past few days and now going into a slight URI. afebrile. scant amounts of mucous noted, no color that she can reca
--- NOTE | 2021-01-11 21:47 | PC.NURSE ---
Pt with rad.
--- NOTE | 2021-01-11 21:49 | PC.NURSE ---
returned from rad.
[2021-01-11 21:52] VITALS: BP 140/53; PULSE 71; O2SAT 96
[2021-01-11 21:56] LABS: Influenza A, PCR Not Detected (NotDetected); Influenza B, PCR Not Detected (NotDetected)
[2021-01-11 22:07] LABS: Alanine Aminotransferase 10 U/L (12-78); Albumin Level 4.4 g/dl (3.5-5.0); Albumin/Globulin Ratio 1.4 (1.1-1.8); Alkaline Phosphatase 69 U/L (38-126); Anion Gap 17.2 mEq/L (5-15); Aspartate Amino Transferase 27 U/L (14-36); Bilirubin,Total 0.5 mg/dl (0.2-1.3); Blood Urea Nitrogen 44 mg/dl (7-17); Calcium 9.2 mg/dl (8.4-10.2); Carbon Dioxide 24 mmol/L (22.0-30.0); Chloride 104 mmol/L (98-107); Creatinine Clearance Estimated 21 mL/min (50-200); Estimated Glomerular Filt Rate 15 ml/min (>60); GFR (African American) 18 ML/MIN (>60); Globulin 3.1 g/dL (1.3-3.2); Glucose 107 mg/dl (74-100); Potassium 4.2 mmoL/L (3.5-5.1); Sodium 141 mmol/L (136-145); Total Protein,Serum 7.5 g/dl (6.3-8.2)
[2021-01-11 22:12] LABS: Basophils # 0.1 K/mm3 (0-0.2); Basophils % 1.8 % (0.1-2.0); C-Reactive Protein 3.6 mg/L (0-4); Eosinophils % 0.1 % (0.1-12.0); Hematocrit 37.2 % (37.0-47.0); Hemoglobin 12.3 g/dL (12.2-16.2); Lymphocytes # 2.1 K/mm3 (0.7-4.5); Lymphocytes % 41.4 % (10-50); Mean Corpuscular Hemoglobin 30.2 pg (27.0-31.2); Mean Corpuscular Volume 91.6 fl (81-99); Mean Platelet Volume 8.8 fl (7.4-10.4); Monocytes # 0.5 K/mm3 (0.1-1.0); Monocytes % 10.1 % (1.7-9.3); Neutrophils # 2.4 K/mm3 (1.8-7.8); Neutrophils % 46.5 % (37.0-80.0); Platelet Count 254 K/mm3 (142-424); Red Blood Count 4.06 M/mm3 (4.20-5.40)
[2021-01-11 22:19] LABS: NT Pro Brain Natriuretic Pep. 258 pg/mL (0-450)
[2021-01-11 22:26] LABS: Procalcitonin 0.451 ng/mL (0.0-2.0)
[2021-01-11 22:29] LABS: Troponin I < 0.01 ng/ml (0.00-0.034)
[2021-01-11 22:30] VITALS: BP 119/50; PULSE 64; O2SAT 93
[2021-01-11 22:40] LABS: Coronavirus 19, PCR Detected (NotDetected)
--- NOTE | 2021-01-11 22:43 | PC.NURSE ---
Dr Eddie alvarez.
--- NOTE | 2021-01-11 22:49 | PC.NURSE ---
Dr Talavera speaking with Dr Morgan
[2021-01-11 22:52] LABS: Erythrocyte Sedimentation Rate 62 mm/hr (0-30)
[2021-01-11 23:28] VITALS: BP 134/60; PULSE 85; RESP 20; TEMP 36.9; O2SAT 96
== END 2021-01-11 23:34 | disposition home or self-care (01) ==
PROVIDERS: Emergency Provider Emergency Medicine; PCP Family Medicine
DX: U07.1 COVID-19 (principal); E11.22 Type 2 diabetes mellitus with diabetic chronic kidney disease; R06.02 Shortness of breath; E11.65 Type 2 diabetes mellitus with hyperglycemia; I12.9 Hypertensive chronic kidney disease with stage 1 through stage 4 chronic kidney disease, or unspecified chronic kidney disease; N18.4 Chronic kidney disease, stage 4 (severe); E78.5 Hyperlipidemia, unspecified; K21.9 Gastro-esophageal reflux disease without esophagitis; Z79.899 Other long term (current) drug therapy
CPT/HCPCS: 71046; 80053; 83880; 84145; 84484; 85025; 85651; 86140; 93005; 96374; 99283; U0003

== ENCOUNTER → 2021-01-13 07:46 | Outpatient (CLI) | payer MEDICARE, OTHER, SELFPAY ==
[2021-01-13] VITALS (7 sets, daily range): BP systolic 143–171; BP diastolic 62–75; PULSE 51–65; RESP 14–18; TEMP 36.8–36.9; O2SAT 96–99
== END ==
PROVIDERS: PCP Family Medicine; Visit Provider Family Medicine
DX: U07.1 COVID-19 (principal)
CPT/HCPCS: 96365

== ENCOUNTER → 2021-02-23 14:33 | Outpatient (CLI) | payer MEDICARE, OTHER, SELFPAY ==
[2021-02-23 14:38] LABS: Microscopic, Urine URINE MICROSCOPIC (MICROSCOPIC)
[2021-02-23 15:06] LABS: Basophils # 0.1 K/mm3 (0-0.2); Basophils % 0.6 % (0.1-2.0); Eosinophils # 0.2 K/mm3 (0.0-0.4); Hematocrit 36.4 % (37.0-47.0); Hemoglobin 11.3 g/dL (12.2-16.2); Lymphocytes # 2.2 K/mm3 (0.7-4.5); Lymphocytes % 28.9 % (10-50); Mean Corpuscular Volume 96.5 fl (81-99); Mean Platelet Volume 8.2 fl (7.4-10.4); Monocytes # 0.4 K/mm3 (0.1-1.0); Monocytes % 5.4 % (1.7-9.3); Neutrophils # 4.9 K/mm3 (1.8-7.8); Platelet Count 346 K/mm3 (142-424); Red Blood Count 3.78 M/mm3 (4.20-5.40); Red Cell Distribution Width 13.6 % (11.5-17.5); White Blood Count 7.7 K/mm3 (4.8-10.8)
[2021-02-23 15:11] LABS: Appearance,Urine SL CLOUDY (Clear); Bilirubin,Urine Negative (Negative); Blood, Urine Negative (Negative); Color,Urine YELLOW (Yellow); Glucose,Urine (UA) Negative (Negative); Ketones,Urine Negative (Negative); Leukocyte Esterase,Urine 1+ (Negative); Nitrate,Urine POSITIVE (Negative); PH,Urine 5.5 (5.0-8.5); Protein,Urine Negative (Negative); Urobilinogen,Urine 0.2 EU/dl (0.2)
[2021-02-23 15:23] LABS: Bacteria,Urine 4+ /lpf; Squamous Epithelial Cell,Urine Occasional #/hpf (0-5); WBC,Urine 50-100 #/hpf (0-3)
[2021-02-23 15:38] LABS: Albumin Level 3.9 g/dl (3.5-5.0); Chloride 105 mmol/L (98-107); Potassium 4.5 mmoL/L (3.5-5.1); Sodium 143 mmol/L (136-145)
[2021-02-23 15:40] LABS: Blood Urea Nitrogen 42 mg/dl (7-17); Estimated Glomerular Filt Rate 19 ml/min (>60); GFR (African American) 23 ML/MIN (>60); Iron 97 ug/dL (37-170)
[2021-02-23 15:41] LABS: Anion Gap 16.5 mEq/L (5-15); Calcium 9.7 mg/dl (8.4-10.2); Carbon Dioxide 26 mmol/L (22.0-30.0); Glucose 142 mg/dl (74-100); Phosphorous 3.9 mg/dl (2.5-4.5)
[2021-02-23 15:50] LABS: Total Iron Binding Capacity 286 ug/dL (265-497)
[2021-02-23 16:02] LABS: 25-OH Vitamin D, Total 57.8 ng/mL (30-100)
[2021-02-23 16:12] LABS: Intact Parathyroid Hormone 153.3 pg/mL (7.5-53.5)
[2021-02-23 16:17] LABS: Ferritin 335 ng/ml (11.1-264)
== END ==
PROVIDERS: Visit Provider Internal Medicine Nephrology
DX: D64.9 Anemia, unspecified (principal); N25.81 Secondary hyperparathyroidism of renal origin; N18.4 Chronic kidney disease, stage 4 (severe); E55.9 Vitamin D deficiency, unspecified; R82.90 Unspecified abnormal findings in urine
CPT/HCPCS: 36415; 80069; 81001; 82306; 82728; 83540; 83550; 83970; 85025; 87086; 87088; 87186

== ENCOUNTER → 2021-04-21 09:45 | Outpatient (CLI) | payer MEDICARE, OTHER, SELFPAY ==
[2021-04-21 09:49] LABS: Microscopic, Urine URINE MICROSCOPIC (MICROSCOPIC)
[2021-04-21 10:24] LABS: Basophils % 0.7 % (0.1-2.0); Eosinophils # 0.2 K/mm3 (0.0-0.4); Eosinophils % 3.3 % (0.1-12.0); Hematocrit 36.1 % (37.0-47.0); Hemoglobin 11.1 g/dL (12.2-16.2); Lymphocytes % 32.4 % (10-50); Mean Corpuscular HGB Conc 30.7 g/dL (31.8-35.4); Mean Corpuscular Hemoglobin 30.3 pg (27.0-31.2); Mean Corpuscular Volume 98.7 fl (81-99); Mean Platelet Volume 8.2 fl (7.4-10.4); Monocytes # 0.4 K/mm3 (0.1-1.0); Monocytes % 6.2 % (1.7-9.3); Neutrophils # 3.5 K/mm3 (1.8-7.8); Neutrophils % 57.5 % (37.0-80.0); Platelet Count 352 K/mm3 (142-424); Red Blood Count 3.66 M/mm3 (4.20-5.40)
[2021-04-21 11:19] LABS: Albumin Level 3.7 g/dl (3.5-5.0); Anion Gap 12.4 mEq/L (5-15); Blood Urea Nitrogen 40 mg/dl (7-17); Calcium 9.6 mg/dl (8.4-10.2); Carbon Dioxide 28 mmol/L (22.0-30.0); Chloride 104 mmol/L (98-107); Estimated Glomerular Filt Rate 21 ml/min (>60); GFR (African American) 25 ML/MIN (>60); Glucose 112 mg/dl (74-100); Phosphorous 3.9 mg/dl (2.5-4.5); Potassium 4.4 mmoL/L (3.5-5.1); Sodium 140 mmol/L (136-145)
[2021-04-21 11:30] LABS: Intact Parathyroid Hormone 134.2 pg/mL (7.5-53.5)
[2021-04-21 11:38] LABS: Appearance,Urine SL CLOUDY (Clear); Bilirubin,Urine Negative (Negative); Blood, Urine Negative (Negative); Color,Urine YELLOW (Yellow); Glucose,Urine (UA) Negative (Negative); Ketones,Urine Negative (Negative); Leukocyte Esterase,Urine 1+ (Negative); Nitrate,Urine Negative (Negative); Protein,Urine Negative (Negative); Specific Gravity, Urine 1.025 (1.005-1.030); Urobilinogen,Urine 0.2 EU/dl (0.2)
[2021-04-21 11:54] LABS: Bacteria,Urine Trace /lpf; RBC,Urine Occasional #/hpf (0-3)
== END ==
PROVIDERS: Visit Provider Nurse Practitioner
DX: N18.4 Chronic kidney disease, stage 4 (severe) (principal); D64.9 Anemia, unspecified; A02.9 Salmonella infection, unspecified; R82.90 Unspecified abnormal findings in urine
CPT/HCPCS: 36415; 80069; 81001; 83970; 85025; 87086; 87088; 87186

== ENCOUNTER → 2021-06-23 07:20 | Outpatient (CLI) | payer MEDICARE, OTHER, SELFPAY ==
[2021-06-23 07:27] LABS: Microscopic, Urine URINE MICROSCOPIC (MICROSCOPIC)
[2021-06-23 08:01] LABS: Appearance,Urine CLEAR (Clear); Bilirubin,Urine Negative (Negative); Blood, Urine Negative (Negative); Color,Urine YELLOW (Yellow); Glucose,Urine (UA) Negative (Negative); Ketones,Urine Negative (Negative); Leukocyte Esterase,Urine 1+ (Negative); Nitrate,Urine POSITIVE (Negative); PH,Urine 5.5 (5.0-8.5); Protein,Urine Negative (Negative); Specific Gravity, Urine 1.015 (1.005-1.030); Urobilinogen,Urine 0.2 EU/dl (0.2)
[2021-06-23 08:06] LABS: Bacteria,Urine Trace /lpf
[2021-06-23 08:39] LABS: Basophils # 0.1 K/mm3 (0-0.2); Basophils % 1.1 % (0.1-2.0); Eosinophils # 0.3 K/mm3 (0.0-0.4); Eosinophils % 3.4 % (0.1-12.0); Hematocrit 39.9 % (37.0-47.0); Hemoglobin 12.5 g/dL (12.2-16.2); Lymphocytes # 2.5 K/mm3 (0.7-4.5); Lymphocytes % 30.8 % (10-50); Mean Corpuscular HGB Conc 31.4 g/dL (31.8-35.4); Mean Corpuscular Hemoglobin 30.2 pg (27.0-31.2); Mean Corpuscular Volume 96.3 fl (81-99); Mean Platelet Volume 8.4 fl (7.4-10.4); Monocytes # 0.6 K/mm3 (0.1-1.0); Monocytes % 7.3 % (1.7-9.3); Neutrophils # 4.7 K/mm3 (1.8-7.8); Neutrophils % 57.4 % (37.0-80.0); Platelet Count 362 K/mm3 (142-424); Red Blood Count 4.14 M/mm3 (4.20-5.40); Red Cell Distribution Width 13.8 % (11.5-17.5); White Blood Count 8.2 K/mm3 (4.8-10.8)
[2021-06-23 09:05] LABS: Albumin Level 4.3 g/dl (3.5-5.0); Anion Gap 13.2 mEq/L (5-15); Blood Urea Nitrogen 42 mg/dl (7-17); Calcium 10.3 mg/dl (8.4-10.2); Carbon Dioxide 29 mmol/L (22.0-30.0); Chloride 101 mmol/L (98-107); Estimated Glomerular Filt Rate 22 ml/min (>60); GFR (African American) 26 ML/MIN (>60); Glucose 94 mg/dl (74-100); Phosphorous 4.6 mg/dl (2.5-4.5); Potassium 4.2 mmoL/L (3.5-5.1); Sodium 139 mmol/L (136-145)
[2021-06-23 09:16] LABS: Intact Parathyroid Hormone 78.8 pg/mL (7.5-53.5)
[2021-06-23 09:21] LABS: 25-OH Vitamin D, Total 55.4 ng/mL (30-100)
== END ==
PROVIDERS: Visit Provider Internal Medicine Nephrology
DX: N18.4 Chronic kidney disease, stage 4 (severe) (principal); E55.9 Vitamin D deficiency, unspecified; D64.9 Anemia, unspecified; R82.90 Unspecified abnormal findings in urine; A02.0 Salmonella enteritis
CPT/HCPCS: 36415; 80069; 81001; 82306; 83970; 85025; 87086; 87088; 87186

== ENCOUNTER → 2021-08-18 12:09 | Outpatient (CLI) | payer MEDICARE, OTHER, SELFPAY ==
[2021-08-18 12:24] LABS: Microscopic, Urine URINE MICROSCOPIC (MICROSCOPIC)
[2021-08-18 13:02] LABS: Basophils # 0.1 K/mm3 (0-0.2); Basophils % 1.1 % (0.1-2.0); Eosinophils # 0.1 K/mm3 (0.0-0.4); Eosinophils % 1.5 % (0.1-12.0); Hematocrit 37.1 % (37.0-47.0); Hemoglobin 11.6 g/dL (12.2-16.2); Lymphocytes # 1.8 K/mm3 (0.7-4.5); Lymphocytes % 24.2 % (10-50); Mean Corpuscular HGB Conc 31.2 g/dL (31.8-35.4); Mean Corpuscular Hemoglobin 29.8 pg (27.0-31.2); Mean Corpuscular Volume 95.4 fl (81-99); Mean Platelet Volume 8.5 fl (7.4-10.4); Monocytes # 0.5 K/mm3 (0.1-1.0); Monocytes % 6.3 % (1.7-9.3); Neutrophils # 4.9 K/mm3 (1.8-7.8); Neutrophils % 66.9 % (37.0-80.0); Platelet Count 336 K/mm3 (142-424); Red Blood Count 3.89 M/mm3 (4.20-5.40); Red Cell Distribution Width 13.7 % (11.5-17.5); White Blood Count 7.3 K/mm3 (4.8-10.8)
[2021-08-18 13:17] LABS: Chloride 99 mmol/L (98-107); Sodium 135 mmol/L (136-145)
[2021-08-18 13:18] LABS: Albumin Level 4.4 g/dl (3.5-5.0); Potassium 4.5 mmoL/L (3.5-5.1)
[2021-08-18 13:20] LABS: Anion Gap 12.5 mEq/L (5-15); Blood Urea Nitrogen 46 mg/dl (7-17); Carbon Dioxide 28 mmol/L (22.0-30.0); Estimated Glomerular Filt Rate 19 ml/min (>60); GFR (African American) 24 ML/MIN (>60)
[2021-08-18 13:21] LABS: Calcium 9.4 mg/dl (8.4-10.2); Glucose 100 mg/dl (74-100); Phosphorous 4.5 mg/dl (2.5-4.5)
[2021-08-18 13:24] LABS: Appearance,Urine CLEAR (Clear); Bilirubin,Urine Negative (Negative); Blood, Urine Negative (Negative); Color,Urine YELLOW (Yellow); Glucose,Urine (UA) Negative (Negative); Ketones,Urine Negative (Negative); Leukocyte Esterase,Urine Negative (Negative); Nitrate,Urine Negative (Negative); Protein,Urine Negative (Negative); Specific Gravity, Urine 1.015 (1.005-1.030); Urobilinogen,Urine 0.2 EU/dl (0.2)
[2021-08-18 13:47] LABS: Bacteria,Urine Trace /lpf; Mucus,Urine 1+ /lpf; Squamous Epithelial Cell,Urine Occasional #/hpf (0-5)
[2021-08-18 13:59] LABS: Creatinine,Urine Random 125 mg/dL (Not Estab.)
[2021-08-18 14:26] LABS: Hemoglobin A1C 5.3 % (4.0-6.0)
== END ==
PROVIDERS: Visit Provider Hospitalist
DX: N18.4 Chronic kidney disease, stage 4 (severe) (principal); E11.9 Type 2 diabetes mellitus without complications; Z79.84 Long term (current) use of oral hypoglycemic drugs
CPT/HCPCS: 36415; 80069; 81001; 82570; 83036; 84155; 85025

== ENCOUNTER → 2021-10-20 11:21 | Outpatient (CLI) | payer MEDICARE, OTHER, SELFPAY ==
--- NOTE | 2021-10-20 11:28 | XR_ITS ---
FINAL REPORT CLINICAL HISTORY: CHRONIC RIGHT SHOULDER PAIN FINDINGS: 3 views of the right shoulder were obtained. There is no acute fracture or dislocation. There are minimal hypertrophic changes at the AC joint. There are no soft tissue abnormalities. IMPRESSION: No acute process. Reviewed, Interpreted and Dictated by Dat Lux MD Transcribed by Elian Key Authenticated by Dat Lux MD on 10/20/2021 12:50:[address] [facility]
== END ==
PROVIDERS: PCP Family Medicine; Visit Provider Family Medicine
DX: M25.511 Pain in right shoulder (principal); G89.29 Other chronic pain
CPT/HCPCS: 73030

== ENCOUNTER → 2022-01-04 07:04 | Outpatient (CLI) | payer MEDICARE, OTHER, SELFPAY ==
[2022-01-04 07:22] LABS: Microscopic, Urine URINE MICROSCOPIC (MICROSCOPIC)
[2022-01-04 07:44] LABS: Basophils # 0.2 K/mm3 (0-0.2); Basophils % 2.1 % (0.1-2.0); Eosinophils # 0.3 K/mm3 (0.0-0.4); Eosinophils % 3.1 % (0.1-12.0); Hematocrit 39.3 % (37.0-47.0); Lymphocytes % 33.5 % (10-50); Mean Corpuscular HGB Conc 30.4 g/dL (31.8-35.4); Mean Corpuscular Hemoglobin 29.5 pg (27.0-31.2); Mean Corpuscular Volume 97.1 fl (81-99); Mean Platelet Volume 8.4 fl (7.4-10.4); Monocytes # 0.7 K/mm3 (0.1-1.0); Monocytes % 8.3 % (1.7-9.3); Neutrophils # 4.7 K/mm3 (1.8-7.8); Neutrophils % 52.9 % (37.0-80.0); Platelet Count 318 K/mm3 (142-424); Red Blood Count 4.05 M/mm3 (4.20-5.40); Red Cell Distribution Width 14.5 % (11.5-17.5); White Blood Count 8.9 K/mm3 (4.8-10.8)
[2022-01-04 07:46] LABS: Appearance,Urine CLEAR (Clear); Bilirubin,Urine Negative (Negative); Blood, Urine TRACE-I (Negative); Color,Urine YELLOW (Yellow); Glucose,Urine (UA) Negative (Negative); Ketones,Urine Negative (Negative); Leukocyte Esterase,Urine Negative (Negative); Nitrate,Urine Negative (Negative); Protein,Urine TRACE (Negative); Specific Gravity, Urine 1.015 (1.005-1.030); Urobilinogen,Urine 0.2 EU/dl (0.2)
[2022-01-04 08:03] LABS: Bacteria,Urine Trace /lpf
[2022-01-04 08:20] LABS: Albumin Level 4.3 g/dl (3.5-5.0); Anion Gap 14.3 mEq/L (5-15); Blood Urea Nitrogen 51 mg/dl (7-17); Calcium 10.6 mg/dl (8.4-10.2); Carbon Dioxide 28 mmol/L (22.0-30.0); Chloride 104 mmol/L (98-107); Estimated Glomerular Filt Rate 16 ml/min (>60); GFR (African American) 20 ML/MIN (>60); Glucose 96 mg/dl (74-100); Phosphorous 4.8 mg/dl (2.5-4.5); Potassium 4.3 mmoL/L (3.5-5.1); Sodium 142 mmol/L (136-145)
[2022-01-04 08:32] LABS: Intact Parathyroid Hormone 89.2 pg/mL (7.5-53.5)
== END ==
PROVIDERS: PCP Family Medicine; Visit Provider Internal Medicine Nephrology
DX: N25.81 Secondary hyperparathyroidism of renal origin (principal); N18.4 Chronic kidney disease, stage 4 (severe)
CPT/HCPCS: 36415; 80069; 81001; 83970; 85025

== ENCOUNTER → 2022-02-23 07:22 | Outpatient (CLI) | payer MEDICARE, OTHER, SELFPAY ==
[2022-02-23 07:30] LABS: Microscopic, Urine URINE MICROSCOPIC (MICROSCOPIC)
[2022-02-23 09:04] LABS: Appearance,Urine CLEAR (Clear); Bilirubin,Urine Negative (Negative); Blood, Urine Negative (Negative); Color,Urine YELLOW (Yellow); Glucose,Urine (UA) Negative (Negative); Ketones,Urine Negative (Negative); Leukocyte Esterase,Urine Negative (Negative); Nitrate,Urine Negative (Negative); Protein,Urine TRACE (Negative); Urobilinogen,Urine 0.2 EU/dl (0.2)
[2022-02-23 09:15] LABS: Creatinine,Urine Random 35 mg/dL (Not Estab.)
[2022-02-23 09:27] LABS: Anion Gap 10.5 mEq/L (5-15); Blood Urea Nitrogen 47 mg/dl (7-17); Calcium 9.9 mg/dl (8.4-10.2); Carbon Dioxide 28 mmol/L (22.0-30.0); Chloride 105 mmol/L (98-107); Estimated Glomerular Filt Rate 18 ml/min (>60); GFR (African American) 21 ML/MIN (>60); Glucose 97 mg/dl (74-100); Phosphorous 5.6 mg/dl (2.5-4.5); Potassium 4.5 mmoL/L (3.5-5.1); Sodium 139 mmol/L (136-145); Uric Acid 8.1 mg/dl (2.5-6.2)
[2022-02-23 09:29] LABS: Squamous Epithelial Cell,Urine Occasional #/hpf (0-5)
== END ==
PROVIDERS: PCP Family Medicine; Visit Provider Nurse Practitioner
DX: N18.4 Chronic kidney disease, stage 4 (severe) (principal); M10.9 Gout, unspecified
CPT/HCPCS: 36415; 80069; 81001; 82570; 84155; 84550

== ENCOUNTER → 2022-05-10 12:14 | Outpatient (CLI) | payer MEDICARE, OTHER, SELFPAY ==
[2022-05-10 12:48] LABS: Microscopic, Urine URINE MICROSCOPIC (MICROSCOPIC)
[2022-05-10 13:24] LABS: Basophils # 0.1 K/mm3 (0-0.2); Basophils % 0.9 % (0.1-2.0); Eosinophils # 0.1 K/mm3 (0.0-0.4); Hematocrit 40.4 % (37.0-47.0); Hemoglobin 12.5 g/dL (12.2-16.2); Lymphocytes # 1.8 K/mm3 (0.7-4.5); Lymphocytes % 28.7 % (10-50); Mean Corpuscular HGB Conc 30.9 g/dL (31.8-35.4); Mean Corpuscular Hemoglobin 29.2 pg (27.0-31.2); Mean Corpuscular Volume 94.5 fl (81-99); Mean Platelet Volume 8.2 fl (7.4-10.4); Monocytes # 0.5 K/mm3 (0.1-1.0); Neutrophils # 3.9 K/mm3 (1.8-7.8); Neutrophils % 61.3 % (37.0-80.0); Platelet Count 393 K/mm3 (142-424); Red Blood Count 4.28 M/mm3 (4.20-5.40); Red Cell Distribution Width 13.3 % (11.5-17.5); White Blood Count 6.4 K/mm3 (4.8-10.8)
[2022-05-10 13:31] LABS: Appearance,Urine CLEAR (Clear); Bilirubin,Urine Negative (Negative); Blood, Urine Negative (Negative); Color,Urine YELLOW (Yellow); Glucose,Urine (UA) Negative (Negative); Ketones,Urine Negative (Negative); Leukocyte Esterase,Urine Negative (Negative); Nitrate,Urine Negative (Negative); Protein,Urine 1+ (Negative); Urobilinogen,Urine 0.2 EU/dl (0.2)
[2022-05-10 13:50] LABS: Albumin Level 4.3 g/dl (3.5-5.0); Anion Gap 16.2 mEq/L (5-15); Blood Urea Nitrogen 45 mg/dl (7-17); Calcium 10.5 mg/dl (8.4-10.2); Carbon Dioxide 27 mmol/L (22.0-30.0); Chloride 101 mmol/L (98-107); Creatine Kinase 50 U/L (30-135); Estimated Glomerular Filt Rate 18 ml/min (>60); GFR (African American) 21 ML/MIN (>60); Glucose 72 mg/dl (74-100); Potassium 4.2 mmoL/L (3.5-5.1); Sodium 140 mmol/L (136-145)
[2022-05-10 13:57] LABS: Bacteria,Urine Trace /lpf; Squamous Epithelial Cell,Urine Occasional #/hpf (0-5); WBC,Urine Occasional #/hpf (0-3)
[2022-05-10 14:03] LABS: Intact Parathyroid Hormone 144.7 pg/mL (7.5-53.5)
[2022-05-10 14:17] LABS: Creatinine,Urine Random 112 mg/dL (Not Estab.)
[2022-05-12 13:50] LABS: Anti-Centromere B Antibodies <0.2 AI (0.0-0.9); Anti-DNA (DS) Ab Qn <1 IU/mL (0-9); Anti-Jo-1 <0.2 AI (0.0-0.9); Anti-Smith Antibody <0.2 AI (0.0-0.9); Antichromatin Antibodies <0.2 AI (0.0-0.9); Antiscleroderma-70 Antibodies <0.2 AI (0.0-0.9); Immunofixation, Urine Comment: (.); RNP Antibodies 0.3 AI (0.0-0.9); Sjogren's Anti-SS-A <0.2 AI (0.0-0.9); Sjogren's Anti-SS-B <0.2 AI (0.0-0.9)
[2022-05-12 15:10] LABS: Immunoglobulin A, Qn 332 mg/dL (64-422); Immunoglobulin G, Qn 761 mg/dL (586-1602); Immunoglobulin M, Qn 58 mg/dL (26-217)
[2022-05-17 10:10] LABS: 1,25 Dihydroxy Vitamin D 18 pg/mL (.); 1,25-Dihydroxy, Vitamin D-2 <10 pg/mL (.); 1,25-Dihydroxy, Vitamin D-3 18 pg/mL (.)
== END ==
PROVIDERS: PCP Family Medicine; Visit Provider Internal Medicine Nephrology
DX: N18.4 Chronic kidney disease, stage 4 (severe) (principal); N25.81 Secondary hyperparathyroidism of renal origin
CPT/HCPCS: 36415; 80069; 81001; 82550; 82570; 82652; 82784; 83970; 84155; 85025; 86225; 86235; 86334; 86335

== ENCOUNTER → 2022-07-05 11:05 | Outpatient (CLI) | payer MEDICARE, OTHER, SELFPAY ==
[2022-07-05 11:21] LABS: Microscopic, Urine URINE MICROSCOPIC (MICROSCOPIC)
[2022-07-05 11:56] LABS: Appearance,Urine CLEAR (Clear); Bilirubin,Urine Negative (Negative); Blood, Urine Negative (Negative); Color,Urine YELLOW (Yellow); Glucose,Urine (UA) Negative (Negative); Ketones,Urine Negative (Negative); Leukocyte Esterase,Urine Negative (Negative); Nitrate,Urine Negative (Negative); PH,Urine 5.5 (5.0-8.5); Protein,Urine TRACE (Negative); Specific Gravity, Urine 1.015 (1.005-1.030); Urobilinogen,Urine 0.2 EU/dl (0.2)
[2022-07-05 12:08] LABS: Bacteria,Urine Trace /lpf; WBC,Urine Occasional #/hpf (0-3)
[2022-07-05 12:09] LABS: Creatinine,Urine Random 108 mg/dL (Not Estab.)
[2022-07-05 12:10] LABS: Hemoglobin A1C 5.3 % (4.0-6.0)
[2022-07-05 12:12] LABS: Basophils # 0.1 K/mm3 (0-0.2); Basophils % 0.7 % (0.1-2.0); Eosinophils # 0.2 K/mm3 (0.0-0.4); Eosinophils % 2.5 % (0.1-12.0); Hematocrit 37.6 % (37.0-47.0); Hemoglobin 11.7 g/dL (12.2-16.2); Lymphocytes # 2.2 K/mm3 (0.7-4.5); Mean Corpuscular Hemoglobin 29.6 pg (27.0-31.2); Mean Corpuscular Volume 95.5 fl (81-99); Mean Platelet Volume 8.2 fl (7.4-10.4); Monocytes # 0.5 K/mm3 (0.1-1.0); Monocytes % 7.4 % (1.7-9.3); Neutrophils # 4.1 K/mm3 (1.8-7.8); Neutrophils % 58.6 % (37.0-80.0); Platelet Count 345 K/mm3 (142-424); Red Blood Count 3.93 M/mm3 (4.20-5.40); Red Cell Distribution Width 13.3 % (11.5-17.5)
[2022-07-05 13:53] LABS: Albumin Level 3.9 g/dl (3.5-5.0); Anion Gap 11.4 mEq/L (5-15); Blood Urea Nitrogen 37 mg/dl (7-17); Calcium 9.1 mg/dl (8.4-10.2); Carbon Dioxide 27 mmol/L (22.0-30.0); Chloride 106 mmol/L (98-107); Estimated Glomerular Filt Rate 20 ml/min (>60); GFR (African American) 25 ML/MIN (>60); Glucose 52 mg/dl (74-100); Phosphorous 3.5 mg/dl (2.5-4.5); Potassium 4.4 mmoL/L (3.5-5.1); Sodium 140 mmol/L (136-145)
[2022-07-05 14:06] LABS: Intact Parathyroid Hormone 180.2 pg/mL (7.5-53.5)
[2022-07-15 00:17] LABS: 1,25 Dihydroxy Vitamin D 14 pg/mL (.); 1,25-Dihydroxy, Vitamin D-2 <10 pg/mL (.); 1,25-Dihydroxy, Vitamin D-3 12 pg/mL (.)
== END ==
PROVIDERS: PCP Family Medicine; Visit Provider Internal Medicine Nephrology
DX: N18.4 Chronic kidney disease, stage 4 (severe) (principal); N25.81 Secondary hyperparathyroidism of renal origin; E11.9 Type 2 diabetes mellitus without complications; Z79.84 Long term (current) use of oral hypoglycemic drugs
CPT/HCPCS: 36415; 80069; 81001; 82570; 82652; 83036; 83970; 84155; 85025

== ENCOUNTER → 2022-10-04 13:18 | Outpatient (CLI) | payer MEDICARE, OTHER, SELFPAY ==
[2022-10-04 13:25] LABS: Microscopic, Urine URINE MICROSCOPIC (MICROSCOPIC)
[2022-10-04 14:18] LABS: Basophils % 0.7 % (0.1-2.0); Eosinophils # 0.1 K/mm3 (0.0-0.4); Eosinophils % 1.7 % (0.1-12.0); Hematocrit 36.8 % (37.0-47.0); Hemoglobin 11.7 g/dL (12.2-16.2); Lymphocytes # 1.7 K/mm3 (0.7-4.5); Lymphocytes % 30.6 % (10-50); Mean Corpuscular HGB Conc 31.7 g/dL (31.8-35.4); Mean Corpuscular Hemoglobin 29.3 pg (27.0-31.2); Mean Corpuscular Volume 92.4 fl (81-99); Mean Platelet Volume 8.2 fl (7.4-10.4); Monocytes # 0.5 K/mm3 (0.1-1.0); Monocytes % 8.4 % (1.7-9.3); Neutrophils # 3.3 K/mm3 (1.8-7.8); Neutrophils % 58.6 % (37.0-80.0); Platelet Count 298 K/mm3 (142-424); Red Blood Count 3.99 M/mm3 (4.20-5.40); Red Cell Distribution Width 13.3 % (11.5-17.5); White Blood Count 5.6 K/mm3 (4.8-10.8)
[2022-10-04 14:28] LABS: Chloride 103 mmol/L (98-107); Sodium 140 mmol/L (136-145)
[2022-10-04 14:29] LABS: Albumin Level 3.8 g/dl (3.5-5.0); Potassium 4.7 mmoL/L (3.5-5.1)
[2022-10-04 14:31] LABS: Anion Gap 11.7 mEq/L (5-15); Blood Urea Nitrogen 39 mg/dl (7-17); Carbon Dioxide 30 mmol/L (22.0-30.0); Estimated Glomerular Filt Rate 18 ml/min (>60); GFR (African American) 21 ML/MIN (>60); Iron 69 ug/dL (37-170)
[2022-10-04 14:32] LABS: Calcium 9.3 mg/dl (8.4-10.2); Glucose 57 mg/dl (74-100); Phosphorous 4.3 mg/dl (2.5-4.5)
[2022-10-04 14:41] LABS: Total Iron Binding Capacity 236 ug/dL (265-497)
[2022-10-04 14:45] LABS: Intact Parathyroid Hormone 189.1 pg/mL (7.5-53.5)
[2022-10-04 15:07] LABS: Ferritin 185 ng/ml (11.1-264)
[2022-10-04 15:59] LABS: Appearance,Urine CLEAR (Clear); Bilirubin,Urine Negative (Negative); Blood, Urine TRACE-I (Negative); Color,Urine YELLOW (Yellow); Glucose,Urine (UA) Negative (Negative); Ketones,Urine Negative (Negative); Leukocyte Esterase,Urine Negative (Negative); Nitrate,Urine Negative (Negative); Protein,Urine TRACE (Negative); Urobilinogen,Urine 0.2 EU/dl (0.2)
[2022-10-04 16:05] LABS: Creatinine,Urine Random 96 mg/dL (Not Estab.)
[2022-10-04 16:30] LABS: Squamous Epithelial Cell,Urine Occasional #/hpf (0-5); WBC,Urine Occasional #/hpf (0-3)
== END ==
PROVIDERS: PCP Family Medicine; Visit Provider Internal Medicine Nephrology
DX: D64.9 Anemia, unspecified (principal); N18.4 Chronic kidney disease, stage 4 (severe); N25.81 Secondary hyperparathyroidism of renal origin
CPT/HCPCS: 36415; 80069; 81001; 82570; 82728; 83540; 83550; 83970; 84155; 85025

== ENCOUNTER → 2023-01-03 09:23 | Outpatient (CLI) | payer MEDICARE, OTHER, SELFPAY ==
[2023-01-03 09:39] LABS: Microscopic, Urine URINE MICROSCOPIC (MICROSCOPIC)
[2023-01-03 10:02] LABS: Basophils % 0.4 % (0.1-2.0); Eosinophils # 0.2 K/mm3 (0.0-0.4); Hemoglobin 11.3 g/dL (12.2-16.2); Lymphocytes # 1.7 K/mm3 (0.7-4.5); Lymphocytes % 31.7 % (10-50); Mean Corpuscular HGB Conc 30.5 g/dL (31.8-35.4); Mean Corpuscular Hemoglobin 28.6 pg (27.0-31.2); Mean Corpuscular Volume 93.8 fl (81-99); Mean Platelet Volume 8.2 fl (7.4-10.4); Monocytes # 0.4 K/mm3 (0.1-1.0); Platelet Count 314 K/mm3 (142-424); Red Blood Count 3.94 M/mm3 (4.20-5.40); Red Cell Distribution Width 13.6 % (11.5-17.5); White Blood Count 5.2 K/mm3 (4.8-10.8)
[2023-01-03 10:28] LABS: Appearance,Urine CLEAR (Clear); Bilirubin,Urine Negative (Negative); Blood, Urine Negative (Negative); Color,Urine YELLOW (Yellow); Glucose,Urine (UA) Negative (Negative); Ketones,Urine Negative (Negative); Leukocyte Esterase,Urine Negative (Negative); Nitrate,Urine Negative (Negative); PH,Urine 6.5 (5.0-8.5); Protein,Urine TRACE (Negative); Urobilinogen,Urine 0.2 EU/dl (0.2)
[2023-01-03 10:58] LABS: Albumin Level 3.7 g/dl (3.5-5.0); Anion Gap 9.2 mEq/L (5-15); Blood Urea Nitrogen 42 mg/dl (7-17); Calcium 9.2 mg/dl (8.4-10.2); Carbon Dioxide 28 mmol/L (22.0-30.0); Chloride 107 mmol/L (98-107); Estimated Glomerular Filt Rate 19 ml/min (>60); GFR (African American) 22 ML/MIN (>60); Glucose 80 mg/dl (74-100); Phosphorous 3.8 mg/dl (2.5-4.5); Potassium 4.2 mmoL/L (3.5-5.1); Sodium 140 mmol/L (136-145); Uric Acid 8.4 mg/dl (2.5-6.2)
[2023-01-03 11:08] LABS: Intact Parathyroid Hormone 179.6 pg/mL (7.5-53.5)
[2023-01-03 12:04] LABS: Squamous Epithelial Cell,Urine Occasional #/hpf (0-5); WBC,Urine Occasional #/hpf (0-3)
[2023-01-08 17:28] LABS: 1,25 Dihydroxy Vitamin D 26 pg/mL (.); 1,25-Dihydroxy, Vitamin D-2 <10 pg/mL (.); 1,25-Dihydroxy, Vitamin D-3 25 pg/mL (.)
== END ==
PROVIDERS: PCP Family Medicine; Visit Provider Internal Medicine Nephrology
DX: N18.4 Chronic kidney disease, stage 4 (severe) (principal); N25.81 Secondary hyperparathyroidism of renal origin; D64.9 Anemia, unspecified; M10.9 Gout, unspecified; E55.9 Vitamin D deficiency, unspecified
CPT/HCPCS: 36415; 80069; 81001; 82652; 83970; 84550; 85025

== ENCOUNTER → 2023-04-04 13:04 | Outpatient (CLI) | payer MEDICARE, OTHER, SELFPAY ==
[2023-04-04 13:24] LABS: Microscopic, Urine URINE MICROSCOPIC (MICROSCOPIC)
[2023-04-04 14:15] LABS: Basophils % 0.5 % (0.1-2.0); Eosinophils # 0.2 K/mm3 (0.0-0.4); Eosinophils % 2.8 % (0.1-12.0); Hematocrit 36.6 % (37.0-47.0); Hemoglobin 11.3 g/dL (12.2-16.2); Lymphocytes # 2.1 K/mm3 (0.7-4.5); Mean Corpuscular HGB Conc 30.9 g/dL (31.8-35.4); Mean Corpuscular Hemoglobin 28.7 pg (27.0-31.2); Mean Corpuscular Volume 92.8 fl (81-99); Monocytes # 0.4 K/mm3 (0.1-1.0); Monocytes % 6.8 % (1.7-9.3); Neutrophils # 3.2 K/mm3 (1.8-7.8); Neutrophils % 54.9 % (37.0-80.0); Platelet Count 322 K/mm3 (142-424); Red Blood Count 3.95 M/mm3 (4.20-5.40); Red Cell Distribution Width 13.4 % (11.5-17.5); White Blood Count 5.9 K/mm3 (4.8-10.8)
[2023-04-04 14:49] LABS: Albumin Level 3.7 g/dl (3.5-5.0); Anion Gap 9.7 mEq/L (5-15); Appearance,Urine CLEAR (Clear); Bilirubin,Urine Negative (Negative); Blood Urea Nitrogen 35 mg/dl (7-17); Blood, Urine Negative (Negative); Calcium 9.4 mg/dl (8.4-10.2); Carbon Dioxide 28 mmol/L (22.0-30.0); Chloride 108 mmol/L (98-107); Color,Urine YELLOW (Yellow); Estimated Glomerular Filt Rate 21 ml/min (>60); GFR (African American) 26 ML/MIN (>60); Glucose 81 mg/dl (74-100); Glucose,Urine (UA) Negative (Negative); Ketones,Urine Negative (Negative); Leukocyte Esterase,Urine Negative (Negative); Nitrate,Urine Negative (Negative); Phosphorous 3.6 mg/dl (2.5-4.5); Potassium 4.7 mmoL/L (3.5-5.1); Protein,Urine 1+ (Negative); Sodium 141 mmol/L (136-145); Uric Acid 7.8 mg/dl (2.5-6.2); Urobilinogen,Urine 0.2 EU/dl (0.2)
[2023-04-04 15:20] LABS: Squamous Epithelial Cell,Urine Occasional #/hpf (0-5)
[2023-04-04 18:47] LABS: Creatinine,Urine Random 89 mg/dL (Not Estab.)
== END ==
PROVIDERS: PCP Family Medicine; Visit Provider Internal Medicine Nephrology
DX: N18.4 Chronic kidney disease, stage 4 (severe) (principal); D64.9 Anemia, unspecified; M10.9 Gout, unspecified; N25.81 Secondary hyperparathyroidism of renal origin
CPT/HCPCS: 36415; 80069; 81001; 82570; 83970; 84155; 84550; 85025

== ENCOUNTER 2023-07-26 11:35 | Outpatient (CLI) | payer MEDICARE, OTHER, SELFPAY ==
[2023-07-26 11:43] LABS: Microscopic, Urine URINE MICROSCOPIC (MICROSCOPIC)
[2023-07-26 12:08] LABS: Appearance,Urine CLEAR (Clear); Bilirubin,Urine Negative (Negative); Blood, Urine Negative (Negative); Color,Urine YELLOW (Yellow); Glucose,Urine (UA) Negative (Negative); Ketones,Urine Negative (Negative); Leukocyte Esterase,Urine Negative (Negative); Nitrate,Urine Negative (Negative); Protein,Urine TRACE (Negative); Urobilinogen,Urine 0.2 EU/dl (0.2)
[2023-07-26 12:35] LABS: Albumin Level 3.6 g/dl (3.5-5.0); Blood Urea Nitrogen 47 mg/dl (7-17); Calcium 9.9 mg/dl (8.4-10.2); Carbon Dioxide 26 mmol/L (22.0-30.0); Chloride 106 mmol/L (98-107); Estimated Glomerular Filt Rate 18 ml/min (>60); GFR (African American) 22 ML/MIN (>60); Glucose 94 mg/dl (74-100); Phosphorous 4.3 mg/dl (2.5-4.5); Sodium 141 mmol/L (136-145)
[2023-07-26 13:07] LABS: Bacteria,Urine Trace /lpf
== END 2023-07-26 23:59 ==
LOC: LAB 11:37
PROVIDERS: PCP Family Medicine; Visit Provider Internal Medicine Nephrology
DX: N18.4 Chronic kidney disease, stage 4 (severe) (principal); D64.9 Anemia, unspecified; N25.81 Secondary hyperparathyroidism of renal origin
CPT/HCPCS: 36415; 80069; 81001; 83970; 84155; 84550

== ENCOUNTER 2023-10-24 08:02 | Emergency (ER) | payer MEDICARE, OTHER, SELFPAY ==
[2023-10-24] VITALS (9 sets, daily range): BP systolic 135–158; BP diastolic 72–80; PULSE 73–95; RESP 9–16; TEMP 36.6–36.7; O2SAT 96–98; BMI 29.2
--- NOTE | 2023-10-24 08:02 | ECG_ITS ---
APPROVED REPORT Exam: Resting ECG HR:86 bpm ECG Measurements Heart Rate 86 AXES DC 110 P 57 QRSd 104 QRS 62 QT 282 T -32 QTc 326 Conclusion SINUS RHYTHM WITH SHORT DC INTERVAL NONSPECIFIC ST & T-WAVE ABNORMALITY ABNORMAL ECG Electronically signed by : LATASHA ROMERO, 10/24/2023 11:44:44
--- NOTE | 2023-10-24 08:12 | XR_ITS ---
FINAL REPORT TECHNIQUE: Single view chest CLINICAL HISTORY: Precordial chest pain FINDINGS: A single view of the chest was obtained. The heart is mildly enlarged.. The lungs are clear. There is no pneumothorax. Osseous structures are unremarkable. IMPRESSION: No acute cardiopulmonary process. Reviewed, Interpreted and Dictated by Rosalio Cheung MD Transcribed by Torrie Chou Authenticated and [facility]
[2023-10-24 08:17] LABS: MANUAL DIFFERENTIAL MANUAL DIFFERENTIAL (MANUAL DIFF)
--- NOTE | 2023-10-24 08:19 | PC.NURSE ---
Dr. Blanco at BS for pt eval
[2023-10-24 08:21] LABS: Basophils # 0.1 K/mm3 (0-0.2); Eosinophils # 0.2 K/mm3 (0.0-0.4); Eosinophils % 2.7 % (0.1-12.0); Hematocrit 36.6 % (37.0-47.0); Hemoglobin 11.8 g/dL (12.2-16.2); Lymphocytes # 3.1 K/mm3 (0.7-4.5); Lymphocytes % 37.4 % (10-50); Mean Corpuscular HGB Conc 32.2 g/dL (31.8-35.4); Mean Corpuscular Hemoglobin 30.6 pg (27.0-31.2); Mean Corpuscular Volume 95.1 fl (81-99); Mean Platelet Volume 8.2 fl (7.4-10.4); Monocytes # 0.6 K/mm3 (0.1-1.0); Monocytes % 6.7 % (1.7-9.3); Neutrophils # 4.4 K/mm3 (1.8-7.8); Neutrophils % 52.2 % (37.0-80.0); Platelet Count 290 K/mm3 (142-424); Red Blood Count 3.84 M/mm3 (4.20-5.40); Red Cell Distribution Width 14.1 % (11.5-17.5); White Blood Count 8.3 K/mm3 (4.8-10.8)
[2023-10-24 08:22] LABS: Chloride 109 mmol/L (98-107); Sodium 140 mmol/L (136-145)
[2023-10-24 08:23] LABS: Potassium 3.6 mmoL/L (3.5-5.1)
[2023-10-24 08:25] LABS: Alanine Aminotransferase 11 U/L (12-78); Aspartate Amino Transferase 23 U/L (14-36); Bilirubin,Total 0.6 mg/dl (0.2-1.3); Blood Urea Nitrogen 50 mg/dl (7-17); Creatinine Clearance Estimated 18 mL/min (50-200); Estimated Glomerular Filt Rate 16 ml/min (>60); GFR (African American) 20 ML/MIN (>60)
--- NOTE | 2023-10-24 08:25 | PC.NURSE ---
RAD at for CXR
[2023-10-24 08:26] LABS: Albumin Level 4.1 g/dl (3.5-5.0); Albumin/Globulin Ratio 1.5 (1.1-1.8); Alkaline Phosphatase 64 U/L (38-126); Anion Gap 9.6 mEq/L (5-15); Calcium 10.8 mg/dl (8.4-10.2); Carbon Dioxide 25 mmol/L (22.0-30.0); Globulin 2.7 g/dL (1.3-3.2); Glucose 122 mg/dl (74-100); Total Protein,Serum 6.8 g/dl (6.3-8.2)
--- NOTE | 2023-10-24 08:26 | HMH.EDGENADL ---
Discharge Plan Disposition Patient Disposition: Home, Self-Care Prescriptions Prescriptions: No Action ferrous sulfate 325 mg (65 mg iron) tablet,delayed release (DR/EC) 325 mg PO DAILY cholecalciferol (vitamin D3) 2,000 unit capsule 2,000 unit PO DAILY cyanocobalamin (vitamin B-12) 1,000 mcg capsule 1,000 mcg PO DAILY aspirin [Adult Low Dose Aspirin] 81 mg tablet,delayed release (DR/EC) 81 mg PO DAILY isosorbide mononitrate 30 MG tablet 30 mg PO DAILY losartan 100 MG tablet 100 mg PO DAILY amlodipine 10 MG tablet 10 mg PO DAILY escitalopram oxalate 10 MG tablet 10 mg PO DAILY glipizide 5 MG tablet extended release 24hr 2.5 mg PO DAILY allopurinol 100 MG tablet 100 mg PO DAILY calcitriol 0.25 MCG capsule 0.25 mcg PO DIRECTED Rx Instructions: 2 x weekly pravastatin 20 MG tablet 20 mg PO HS quetiapine 50 MG tablet extended release 24 hr 50 mg PO HS Referrals Follow up/Referrals: Robert Sharp MD [Staff Physician] - See instructions ProviderAlfa MD [Referring] - See instructions Activity Restrictions/Add. Instructions Additional Instructions/Restrictions: At this time it was felt you are safe to be discharged home. If new or worsening symptoms please do not hesitate to return the emergency department. Please wear your event monitor and call and schedule an appointment to follow-up with cardiology later this week. Clinical Impressions Clinical Impression: Palpitations Discharge ED Provider: Filipe Blanco General Adult HPI General Chief complaint: Arrhythmia/Palpitations Stated complaint: chest pain Time Seen by Provider: 10/24/23 08:14 Mode of Arrival: Wheelchair Source of Information: Patient Limitations: No Limitations Description of Symptoms (Recalled from ER Triage Doc. by RN): Patient states that her heart has been feeling funny since last night. States it feels like it is fluttering and jumping. Denies any chest pain at this time. History of Present Illness HPI narrative: Patient is a 83-year-old female with past medical history of CKD, chronic murmur, xdi-[id number] diabetes who presents to the emergency department for evaluation of abnormal heartbeat. Patient states that for many years she has had intermittent feelings of fluttering and jumping in her chest. This comes and goes and has never been caught by her family doctor yet. She has felt intermittent symptoms similar to this since last night, denies other acute symptoms at this time, no cough, no chest pain, no abdominal pain. Due to persistent symptoms she presents here for continued evaluation. Related Data Home Medications Medication Instructions Recorded Confirmed allopurinol 100 mg tablet 100 mg PO DAILY gout 01/03/19 01/11/21 amlodipine 10 mg tablet 10 mg PO DAILY High blood pressure 01/03/19 01/11/21 calcitriol 0.25 mcg capsule 0.25 mcg PO DIRECTED Supplement 01/03/19 01/11/21 escitalopram oxalate 10 mg tablet 10 mg PO DAILY Depression 01/03/19 01/11/21 glipizide 5 mg tablet, extended 2.5 mg PO DAILY blood sugar 01/03/19 01/11/21 release 24 hr isosorbide mononitrate 30 mg 30 mg PO DAILY High blood pressure 01/03/19 01/11/21 tablet,extended release 24 hr losartan 100 mg tablet 100 mg PO DAILY High blood pressure 01/03/19 01/11/21 pravastatin 20 mg tablet 20 mg PO HS High cholesterol 01/03/19 01/11/21 quetiapine 50 mg tablet,extended 50 mg PO HS mood 01/03/19 01/11/21 release 24 hr aspirin 81 mg tablet,delayed 81 mg PO DAILY antiplatelet 03/05/19 01/11/21 release (Adult Low Dose Aspirin) cholecalciferol (vitamin D3) 50 2,000 unit PO DAILY Supplement 03/05/19 01/11/21 mcg (2,000 unit) capsule cyanocobalamin (vitamin B-12) 1,000 mcg PO DAILY Supplement 03/05/19 01/11/21 1,000 mcg capsule ferrous sulfate 325 mg (65 mg 325 mg PO DAILY iron 03/05/19 01/11/21 iron) tablet,delayed release Allergies Allergy/AdvReac Type Severity Reaction Status Date / Time No Known Allergies Allergy Verified 01/13/21 09:03 [facility] Disclaimer: The information contained in this section may have been updated after the patient was seen, as this information can be updated by other users. Social History Smoking Status: Unknown if ever smoked alcohol intake: never current occupational status: retired Travel in the last 8 weeks: None ROS Obtained: Yes Systems reviewed as appropriate & no additional complaints except as documented Physical Exam General General appearance: alert and in no apparent distress Head Head exam: atraumatic and normocephalic Eye Eye exam: Present PERRL and EOMI ENT ENT exam: Present mucous membranes moist Neck Neck exam: Present normal inspection Chest Chest inspection: Present normal inspection, symmetric chest wall rise and other (2+ systolic murmur left sternal border does not radiate) Respiratory Respiratory exam: Present normal lung sounds bilaterally; Absent respiratory distress Cardiovascular Cardiovascular exam: Present regular rate and normal rhythm Abdominal Exam Abdominal exam: Present soft; Absent tenderness Extremities Exam Extremities exam: Present normal inspection and other (No pitting edema) Neurological Exam Neurological exam: Present alert Psychiatric Psychiatric exam: Present normal affect Skin Skin exam: Present warm and dry Medical Decision Making Tunde Inquiry Pt receiving controlled substance: No Vital Signs: 10/24/23 08:02 10/24/23 08:06 10/24/23 08:30 Temperature 97.9 F Temperature Source Oral Pulse Rate 80 75 Pulse Rate [Radial] 95 H Respiratory Rate 16 14 9 L Blood Pressure 139/75 Blood Pressure [Right Arm] 158/80 H Blood Pressure Mean 118 Blood Pressure Mean [Right Arm] 106 Blood Pressure Source [Right Arm] Automatic Cuff Blood Pressure Position [Right Arm] Sitting 02 Sat by Pulse Oximetry 97 97 96 Oxygen Delivery Method Room Air 10/24/23 09:00 10/24/23 09:30 Temperature Temperature Source Pulse Rate 73 77 Pulse Rate [Radial] Respiratory Rate 12 10 L Blood Pressure 145/73 H 136/74 Blood Pressure [Right Arm] Blood Pressure Mean 107 Blood Pressure Mean [Right Arm] Blood Pressure Source [Right Arm] Blood Pressure Position [Right Arm] 02 Sat by Pulse Oximetry 97 96 Oxygen Delivery Method Lab Data Lab Results 10/24/23 08:05: WBC 8.3, RBC 3.84 L, Hgb 11.8 L, Hct 36.6 L, MCV 95.1, MCH 30.6, MCHC 32.2, RDW 14.1, Plt Count 290, MPV 8.2, Neut % (Auto) 52.2, Lymph % (Auto) 37.4, [place] % (Auto) 6.7, Eos % (Auto) 2.7, Baso % (Auto) 1.0, Neut # (Auto) 4.4, Lymph # (Auto) 3.1, [place] # (Auto) 0.6, Eos # (Auto) 0.2, Baso # (Auto) 0.1, Total Counted 100, Neutrophils % (Manual) 46, Band Neutrophils % 1.0, Lymphocytes % (Manual) 42, Monocytes % (Manual) 7, Eosinophils % (Manual) 4 H, Platelet Estimate Normal, RBC Morphology Normal, Sodium 140, Potassium 3.6, Chloride 109 H, Carbon Dioxide 25, Anion Gap 9.6, BUN 50 H, Creatinine 2.80 H, Estimated Creat Clear 18, Estimated GFR 16 L*, Est GFR ( Amer) 20 L, Glucose 122 H, Calcium 10.8 H, Magnesium 2.0, Total Bilirubin 0.6, AST 23, ALT 11 L, Alkaline Phosphatase 64, Troponin I 0.01, Total Protein 6.8, Albumin 4.1, Globulin 2.7, Albumin/Globulin Ratio 1.5 10/24/23 10:01: Troponin I 0.02 10/24/23 08:05 10/24/23 08:05 Orders (Tests/Meds): ED MEDICATIONS Generic Name Dose Route Start Last Admin Trade Name Freq PRN Reason Stop Dose Admin Sodium Chloride 10 ml 10/24/23 08:12 Sodium Chloride 0.9% 10ml Flush Syringe IV 11/23/23 08:11 NEEDED PRN Maintain IV Site ORDERS Category Date Time Status XR chest portable Stat Exams 10/24/23 08:12 Completed Complete Blood Count Man Dif Stat Lab 10/24/23 08:05 Completed Comprehensive Metabolic Panel Stat Lab 10/24/23 08:05 Completed MG [Magnesium] Stat Lab 10/24/23 08:05 Completed Troponin I Q3H Lab 10/24/23 10:01 Completed Troponin I Q3H Lab 10/24/23 14:15 Ordered Troponin I Stat Lab 10/24/23 08:05 Completed ECG holter initial pfn Routine Y 10/24/23 Completed ECG Data Tracing #1: Independently interpreted by me, rate is 86, rhythm is regular, axis is normal, no ST elevation in anatomical contiguous leads, QTc 326. HEART Score History (anamnesis): Slightly suspicious ECG: Normal Age: >65 years Risk factors: 1-2 risk factors Troponin: </= normal limit HEART Score: 3 Medical Decision Narrative: In summary patient is a 83-year-old female with past medical history described above who presents emergency department for evaluation of palpitations. Patient is hemodynamically stable nontoxic-appearing upon arrival, afebrile. Differential diagnosis includes PVC, PAC, nonsustained tacky dysrhythmia, atypical ACS, critical electrolyte abnormality, among others. Workup will be conducted with hematologic labs, chest x-ray, EKG, troponin. Initial workup reviewed by me, hematologic labs are nonactionable, CKD without critical electrolyte abnormality, mild hypercalcemia, initial troponin within normal range. The patient was placed in observation status at 920. Medical necessity for observational status is serial troponins, cardiac monitoring. The patient was provided serial reevaluations and cardiac monitoring while awaiting results. founder president and ceo reviewed by me at 0936, rate is 77, rhythm is regular, sinus. Results of testing during observation show no significant delta troponin. Because of this I feel patient is appropriate for outpatient cardiology management at this time and was fitted with a event monitor and will follow-up with cardiology on an outpatient basis. Total time in observation was 1 hour and 43 minutes. Critical Care Critical Care Time Critical Care Time: No
[2023-10-24 08:51] LABS: Troponin I 0.01 ng/ml (0.00-0.034)
--- NOTE | 2023-10-24 09:09 | PC.NURSE ---
Updated pt on current POC. No needs voiced at this time. Call light remains within reach.
[2023-10-24 10:17] LABS: Eosinophils % 4 % (0-3); Lymphocytes % 42 % (10-50); Monocytes % 7 % (2-9); Neutrophils % 46 % (42-76); Total Cells Counted 100
[2023-10-24 10:18] LABS: Platelet Estimate Normal; RBC Morphology Normal
--- NOTE | 2023-10-24 10:22 | PC.NURSE ---
respiratory placed heart monitor
[2023-10-24 10:38] LABS: Troponin I 0.02 ng/ml (0.00-0.034)
--- NOTE | 2023-10-24 11:04 | PC.NURSE ---
Dr. Blanco at BS to update pt on results
== END 2023-10-24 11:26 | disposition home or self-care (01) ==
PROVIDERS: Emergency Provider Emergency Medicine; PCP Family Medicine
DX: R00.2 Palpitations (principal); R07.9 Chest pain, unspecified; N18.9 Chronic kidney disease, unspecified; E11.9 Type 2 diabetes mellitus without complications; Z79.84 Long term (current) use of oral hypoglycemic drugs
CPT/HCPCS: 71045; 80053; 83735; 84484; 85007; 85014; 85018; 85048; 85049; 93005; 93225; 99284

== ENCOUNTER 2023-10-25 11:07 | Outpatient (CLI) | payer MEDICARE, OTHER, SELFPAY ==
[2023-10-25 11:22] LABS: Microscopic, Urine URINE MICROSCOPIC (MICROSCOPIC)
[2023-10-25 11:52] LABS: Basophils # 0.1 K/mm3 (0-0.2); Basophils % 1.2 % (0.1-2.0); Eosinophils # 0.2 K/mm3 (0.0-0.4); Eosinophils % 2.8 % (0.1-12.0); Hematocrit 37.5 % (37.0-47.0); Hemoglobin 11.6 g/dL (12.2-16.2); Lymphocytes % 33.7 % (10-50); Mean Corpuscular HGB Conc 30.8 g/dL (31.8-35.4); Mean Corpuscular Hemoglobin 30.4 pg (27.0-31.2); Mean Corpuscular Volume 98.6 fl (81-99); Mean Platelet Volume 8.6 fl (7.4-10.4); Monocytes # 0.4 K/mm3 (0.1-1.0); Monocytes % 6.7 % (1.7-9.3); Neutrophils # 3.3 K/mm3 (1.8-7.8); Neutrophils % 55.6 % (37.0-80.0); Platelet Count 309 K/mm3 (142-424); Red Cell Distribution Width 14.2 % (11.5-17.5)
[2023-10-25 12:09] LABS: Appearance,Urine CLEAR (Clear); Bilirubin,Urine Negative (Negative); Blood, Urine Negative (Negative); Color,Urine YELLOW (Yellow); Glucose,Urine (UA) Negative (Negative); Ketones,Urine Negative (Negative); Leukocyte Esterase,Urine Negative (Negative); Nitrate,Urine Negative (Negative); Protein,Urine Negative (Negative); Specific Gravity, Urine 1.015 (1.005-1.030); Urobilinogen,Urine 0.2 EU/dl (0.2)
[2023-10-25 12:22] LABS: Creatinine,Urine Random 68 mg/dL (Not Estab.)
[2023-10-25 12:27] LABS: Anion Gap 11.9 mEq/L (5-15); Blood Urea Nitrogen 42 mg/dl (7-17); Calcium 10.5 mg/dl (8.4-10.2); Carbon Dioxide 25 mmol/L (22.0-30.0); Chloride 109 mmol/L (98-107); Estimated Glomerular Filt Rate 20 ml/min (>60); GFR (African American) 25 ML/MIN (>60); Glucose 72 mg/dl (74-100); Phosphorous 4.1 mg/dl (2.5-4.5); Potassium 3.9 mmoL/L (3.5-5.1); Sodium 142 mmol/L (136-145)
[2023-10-25 12:54] LABS: Intact Parathyroid Hormone 79.9 pg/mL (7.5-53.5)
[2023-10-25 13:41] LABS: 25-OH Vitamin D, Total 40.3 ng/mL (30-100)
[2023-10-25 14:34] LABS: Bacteria,Urine Trace /lpf; RBC,Urine Occasional #/hpf (0-3); Squamous Epithelial Cell,Urine Occasional #/hpf (0-5); WBC,Urine Occasional #/hpf (0-3)
== END 2023-10-25 23:59 | disposition home or self-care (01) ==
LOC: LAB 11:08
PROVIDERS: PCP Family Medicine; Visit Provider Internal Medicine Nephrology
DX: N18.4 Chronic kidney disease, stage 4 (severe) (principal); N25.81 Secondary hyperparathyroidism of renal origin; E55.9 Vitamin D deficiency, unspecified
CPT/HCPCS: 36415; 80069; 81001; 82306; 82570; 83970; 84156; 85025

== ENCOUNTER 2023-10-31 11:38 | Outpatient (CLI) | payer MEDICARE, OTHER, SELFPAY | END 2023-10-31 23:59 | disposition home or self-care (01) | LOC: RT 11:39 | PROVIDERS: PCP Family Medicine; Visit Provider Physician Assistant | DX: R00.2 Palpitations (principal) | CPT/HCPCS: 93270 ==

== ENCOUNTER 2023-11-09 14:59 | Outpatient (CLI) | payer MEDICARE, OTHER, SELFPAY ==
--- NOTE | 2023-11-09 15:00 | CA_ITS ---
APPROVED REPORT EXAM: Comprehensive 2D, Doppler, and color-flow Echocardiogram Transfer Engineer: Loly Henry, RCS, RVS Ht: 5 ft 2 in Wt: 168lbs BSA: 1.78 HR: 48 bpm BP: 159/63 mmHg Rhythm: Bradycardia Indications: , Murmur, Palpitations, HTN, LVH 2D Dimensions IVSd 1.27 cm F: 0.6-1.0 LVEF (Visual) 60.00 % PWd 1.14 cm F: 0.6 - 1.0 LA Volume 77.10 mL LVDd 3.87 cm F: 3.9 - 5.3 LA Volume Index 43.31 mL/m2 (M/F) 16-34 LVDs 2.00 cm F: 2.2 - 3.5 Left Atrium 3.64 cm F: 2.7 - 3.8 M-Mode Dimensions RVDd 2.25 cm (0.9-2.6) LA Diam 4.16 cm (1.9-4.0) LVDd 4.50 cm (3.5-5.7) LVDs 2.25 cm (3.5-5.7) IVSd 1.28 cm (0.6-1.1) PWd 1.28 cm (0.6-1.1) EF (Teich) 65.00% EPSs 0.32 cm FS 50.00% EDV (Teich) 92.40 mL TAPSE 2.40 (<1.7) ESV (Teich) 17.10 mL LV Diastology E Decel Time 177 (160-240 msec) E/A Ratio 0.95 MED A' 14.00 cm/s LAT A' 14.20 cm/s Aortic Valve SANDOVAL Index 0.87 cm2/m2 AoV Peak Arturo. 171.0 (50-130 cm/s) AO Peak GR. 11.70 mmHg AO Mean GR. 5.90 (<5 mmHg) AO VTI 37.4 (18-25 cm) SANDOVAL (VTI) 1.58 (2.5-4.5 cm2) Mitral Valve MV E Max Arturo. 107.0 (40-130 cm/s) MV A Velocity 113.0 (40-130 cm/s) E/A Ratio 0.95 MV PHT 52.0 ms Pulmonary Valve PV Peak Velocity 110.0 (50-150 cm/s) SD End VMAX 163.0 cm/s Tricuspid Valve TR P. Velocity 272.00 cm/s RAP Estimate 10.00 mmHg RVSP 39.60 mmHg Left Ventricle The left ventricle is normal size. The left ventricular systolic function is normal. The left ventricular ejection fraction is within the normal range. There is normal left ventricular wall thickness. There is normal LV segmental wall motion. The left ventricular diastolic function is normal. LVEF is 60%. Right Ventricle The right ventricle is normal size. The right ventricular systolic function is normal. Atria Left atrium is mildly dilated. The right atrium size is normal. There is no Doppler evidence of interatrial shunt. Aortic Valve The aortic valve is mildly thickened. There is no aortic valvular stenosis. No aortic regurgitation is present. Mitral Valve The mitral valve leaflets are mildly thickened. Mild mitral regurgitation. No evidence of mitral valve stenosis. Tricuspid Valve The tricuspid valve leaflets are thin and pliable. Mild tricuspid regurgitation. RVSP is 30-35 mmHg. Pulmonic Valve The pulmonary valve is normal in structure. Trace pulmonic regurgitation. Great Vessels The aortic root is normal in size. The ascending aorta is normal in size. IVC is normal in size and collapses >50% with inspiration. Pericardium There is no pericardial effusion. Other Information Study Quality: Fair Conclusion Normal biventricular systolic function. Mild LA dilation. Mild MR, mild TR. RVSP 30-35 mmHg. Electronically signed by : Bela Chandra MD 11/11/2023 22:31:02
== END 2023-11-09 23:59 | disposition home or self-care (01) ==
LOC: RT 15:00
PROVIDERS: PCP Family Medicine; Visit Provider Physician Assistant
DX: R01.1 Cardiac murmur, unspecified (principal); R00.2 Palpitations; I10 Essential (primary) hypertension
CPT/HCPCS: 93306

== ENCOUNTER 2023-12-07 10:57 | Outpatient (CLI) | payer MEDICARE, OTHER, SELFPAY | END 2023-12-07 23:59 | disposition home or self-care (01) | LOC: RT 10:58 | PROVIDERS: PCP Family Medicine; Visit Provider Physician Assistant | DX: I35.0 Nonrheumatic aortic (valve) stenosis (principal); R00.2 Palpitations; I48.0 Paroxysmal atrial fibrillation; N18.4 Chronic kidney disease, stage 4 (severe) | CPT/HCPCS: 93270 ==

== ENCOUNTER 2024-01-24 12:40 | Outpatient (CLI) | payer MEDICARE, OTHER, SELFPAY ==
[2024-01-24 12:47] LABS: Microscopic, Urine URINE MICROSCOPIC (MICROSCOPIC)
[2024-01-24 13:44] LABS: Appearance,Urine CLEAR (Clear); Bilirubin,Urine Negative (Negative); Blood, Urine Negative (Negative); Color,Urine YELLOW (Yellow); Glucose,Urine (UA) Negative (Negative); Ketones,Urine Negative (Negative); Leukocyte Esterase,Urine Negative (Negative); Nitrate,Urine Negative (Negative); PH,Urine 6.5 (5.0-8.5); Protein,Urine Negative (Negative); Urobilinogen,Urine 0.2 EU/dl (0.2)
[2024-01-24 13:56] LABS: Creatinine,Urine Random 74 mg/dL (Not Estab.)
[2024-01-24 13:59] LABS: Basophils % 0.6 % (0.1-2.0); Eosinophils # 0.2 K/mm3 (0.0-0.4); Eosinophils % 2.6 % (0.1-12.0); Hematocrit 34.6 % (37.0-47.0); Hemoglobin 11.1 g/dL (12.2-16.2); Lymphocytes # 2.2 K/mm3 (0.7-4.5); Lymphocytes % 32.2 % (10-50); Mean Corpuscular Hemoglobin 30.6 pg (27.0-31.2); Mean Corpuscular Volume 95.5 fl (81-99); Mean Platelet Volume 8.6 fl (7.4-10.4); Monocytes # 0.4 K/mm3 (0.1-1.0); Monocytes % 5.7 % (1.7-9.3); Neutrophils % 58.8 % (37.0-80.0); Platelet Count 309 K/mm3 (142-424); Red Blood Count 3.63 M/mm3 (4.20-5.40); Red Cell Distribution Width 14.3 % (11.5-17.5); White Blood Count 6.8 K/mm3 (4.8-10.8)
[2024-01-24 14:08] LABS: Bacteria,Urine Trace /lpf; Squamous Epithelial Cell,Urine Occasional #/hpf (0-5)
[2024-01-24 14:26] LABS: Albumin Level 3.7 g/dl (3.5-5.0); Anion Gap 12.6 mEq/L (5-15); Blood Urea Nitrogen 49 mg/dl (7-17); Calcium 10.4 mg/dl (8.4-10.2); Carbon Dioxide 26 mmol/L (22.0-30.0); Chloride 105 mmol/L (98-107); Estimated Glomerular Filt Rate 16 ml/min (>60); GFR (African American) 20 ML/MIN (>60); Glucose 121 mg/dl (74-100); Phosphorous 3.7 mg/dl (2.5-4.5); Potassium 4.6 mmoL/L (3.5-5.1); Sodium 139 mmol/L (136-145)
== END 2024-01-24 23:59 | disposition home or self-care (01) ==
LOC: LAB 12:41
PROVIDERS: PCP Family Medicine; Visit Provider Internal Medicine Nephrology
DX: N18.4 Chronic kidney disease, stage 4 (severe) (principal)
CPT/HCPCS: 36415; 80069; 81001; 82570; 84156; 85025

== ENCOUNTER 2024-03-19 11:34 | Outpatient (CLI) | payer MEDICARE, OTHER, SELFPAY ==
[2024-03-19 11:43] LABS: Microscopic, Urine URINE MICROSCOPIC (MICROSCOPIC)
[2024-03-19 12:11] LABS: Appearance,Urine CLEAR (Clear); Bilirubin,Urine Negative (Negative); Blood, Urine Negative (Negative); Color,Urine YELLOW (Yellow); Glucose,Urine (UA) Negative (Negative); Ketones,Urine Negative (Negative); Leukocyte Esterase,Urine Negative (Negative); Nitrate,Urine Negative (Negative); Protein,Urine TRACE (Negative); Urobilinogen,Urine 0.2 EU/dl (0.2)
[2024-03-19 12:25] LABS: Bacteria,Urine Trace /lpf; Squamous Epithelial Cell,Urine Occasional #/hpf (0-5)
[2024-03-19 12:28] LABS: Albumin Level 3.7 g/dl (3.5-5.0); Anion Gap 9.6 mEq/L (5-15); Blood Urea Nitrogen 40 mg/dl (7-17); Calcium 10.4 mg/dl (8.4-10.2); Carbon Dioxide 27 mmol/L (22.0-30.0); Chloride 106 mmol/L (98-107); Estimated Glomerular Filt Rate 17 ml/min (>60); GFR (African American) 20 ML/MIN (>60); Glucose 115 mg/dl (74-100); Phosphorous 4.2 mg/dl (2.5-4.5); Potassium 3.6 mmoL/L (3.5-5.1); Sodium 139 mmol/L (136-145)
[2024-03-19 12:51] LABS: Creatinine,Urine Random 114 mg/dL (Not Estab.)
== END 2024-03-19 23:59 | disposition home or self-care (01) ==
LOC: LAB 11:36
PROVIDERS: PCP Family Medicine; Visit Provider Internal Medicine Nephrology
DX: N18.4 Chronic kidney disease, stage 4 (severe) (principal)
CPT/HCPCS: 36415; 80069; 81001; 82570; 84156

== ENCOUNTER 2024-03-27 14:01 | Outpatient (CLI) | payer MEDICARE, OTHER, SELFPAY ==
[2024-03-27 15:20] LABS: Intact Parathyroid Hormone 88.6 pg/mL (7.5-53.5)
== END 2024-03-27 23:59 | disposition home or self-care (01) ==
LOC: LAB 14:03
PROVIDERS: PCP Family Medicine; Visit Provider Internal Medicine Nephrology
DX: Z79.01 Long term (current) use of anticoagulants (principal); N25.81 Secondary hyperparathyroidism of renal origin
CPT/HCPCS: 36415; 83970

== ENCOUNTER 2024-04-23 12:59 | Outpatient (CLI) | payer MEDICARE, OTHER, SELFPAY ==
[2024-04-23 13:16] LABS: Microscopic, Urine URINE MICROSCOPIC (MICROSCOPIC)
[2024-04-23 14:00] LABS: Basophils # 0.1 K/mm3 (0-0.2); Basophils % 0.9 % (0.1-2.0); Eosinophils # 0.1 K/mm3 (0.0-0.4); Eosinophils % 2.4 % (0.1-12.0); Hematocrit 33.9 % (37.0-47.0); Lymphocytes # 1.7 K/mm3 (0.7-4.5); Lymphocytes % 30.1 % (10-50); Mean Corpuscular HGB Conc 32.4 g/dL (31.8-35.4); Mean Corpuscular Hemoglobin 31.1 pg (27.0-31.2); Mean Corpuscular Volume 95.8 fl (81-99); Mean Platelet Volume 8.1 fl (7.4-10.4); Monocytes # 0.4 K/mm3 (0.1-1.0); Monocytes % 7.3 % (1.7-9.3); Neutrophils # 3.4 K/mm3 (1.8-7.8); Neutrophils % 59.3 % (37.0-80.0); Platelet Count 312 K/mm3 (142-424); Red Blood Count 3.54 M/mm3 (4.20-5.40); Red Cell Distribution Width 13.9 % (11.5-17.5); White Blood Count 5.7 K/mm3 (4.8-10.8)
[2024-04-23 14:01] LABS: Appearance,Urine CLEAR (Clear); Bilirubin,Urine Negative (Negative); Blood, Urine Negative (Negative); Color,Urine YELLOW (Yellow); Glucose,Urine (UA) Negative (Negative); Ketones,Urine Negative (Negative); Leukocyte Esterase,Urine Negative (Negative); Nitrate,Urine Negative (Negative); Protein,Urine Negative (Negative); Urobilinogen,Urine 0.2 EU/dl (0.2)
[2024-04-23 14:15] LABS: Albumin Level 3.7 g/dl (3.5-5.0); Anion Gap 18.3 mEq/L (5-15); Blood Urea Nitrogen 44 mg/dl (7-17); Carbon Dioxide 25 mmol/L (22.0-30.0); Chloride 101 mmol/L (98-107); Estimated Glomerular Filt Rate 18 ml/min (>60); GFR (African American) 21 ML/MIN (>60); Glucose 88 mg/dl (74-100); Phosphorous 4.3 mg/dl (2.5-4.5); Potassium 4.3 mmoL/L (3.5-5.1); Sodium 140 mmol/L (136-145)
[2024-04-23 14:27] LABS: Intact Parathyroid Hormone 136.8 pg/mL (7.5-53.5)
[2024-04-23 14:52] LABS: Bacteria,Urine Trace /lpf; WBC,Urine Occasional #/hpf (0-3)
== END 2024-04-23 23:59 | disposition home or self-care (01) ==
LOC: LAB 13:02
PROVIDERS: PCP Family Medicine; Visit Provider Internal Medicine Nephrology
DX: N25.81 Secondary hyperparathyroidism of renal origin (principal); N18.4 Chronic kidney disease, stage 4 (severe)
CPT/HCPCS: 36415; 80069; 81001; 83970; 85025

== ENCOUNTER 2024-06-04 12:48 | Outpatient (CLI) | payer MEDICARE, OTHER, SELFPAY ==
[2024-06-04 13:01] LABS: Microscopic, Urine URINE MICROSCOPIC (MICROSCOPIC)
[2024-06-04 13:51] LABS: Appearance,Urine CLEAR (Clear); Bilirubin,Urine Negative (Negative); Blood, Urine Negative (Negative); Color,Urine YELLOW (Yellow); Glucose,Urine (UA) Negative (Negative); Ketones,Urine Negative (Negative); Leukocyte Esterase,Urine Negative (Negative); Nitrate,Urine Negative (Negative); Protein,Urine TRACE (Negative); Urobilinogen,Urine 0.2 EU/dl (0.2)
[2024-06-04 13:53] LABS: Creatinine,Urine Random 93 mg/dL (Not Estab.)
[2024-06-04 14:55] LABS: Chloride 108 mmol/L (98-107); Potassium 4.8 mmoL/L (3.5-5.1); Sodium 141 mmol/L (136-145)
[2024-06-04 14:58] LABS: Anion Gap 12.8 mEq/L (5-15); Blood Urea Nitrogen 42 mg/dl (7-17); Carbon Dioxide 25 mmol/L (22.0-30.0); Estimated Glomerular Filt Rate 16 ml/min (>60); GFR (African American) 20 ML/MIN (>60)
[2024-06-04 14:59] LABS: Calcium 8.4 mg/dl (8.4-10.2); Glucose 94 mg/dl (74-100); Phosphorous 4.1 mg/dl (2.5-4.5)
[2024-06-04 15:32] LABS: WBC,Urine Occasional #/hpf (0-3)
[2024-06-08 15:03] LABS: Intact Parathyroid Hormone 154.8 pg/mL (7.5-53.5)
[2024-06-11 14:04] LABS: Magnesium 2.2 mg/dl (1.6-2.3)
== END 2024-06-04 23:59 | disposition home or self-care (01) ==
LOC: LAB 12:51
PROVIDERS: PCP Family Medicine; Visit Provider Internal Medicine Nephrology
DX: N18.4 Chronic kidney disease, stage 4 (severe) (principal); N25.81 Secondary hyperparathyroidism of renal origin
CPT/HCPCS: 36415; 80069; 81001; 82570; 83735; 83970; 84156

== ENCOUNTER 2024-07-24 11:09 | Outpatient (CLI) | payer MEDICARE, OTHER, SELFPAY ==
[2024-07-24 11:20] LABS: Microscopic, Urine URINE MICROSCOPIC (MICROSCOPIC)
[2024-07-24 11:43] LABS: Appearance,Urine CLEAR (Clear); Basophils % 0.6 % (0.1-2.0); Bilirubin,Urine Negative (Negative); Blood, Urine Negative (Negative); Color,Urine YELLOW (Yellow); Eosinophils # 0.2 K/mm3 (0.0-0.4); Glucose,Urine (UA) Negative (Negative); Hematocrit 33.8 % (37.0-47.0); Hemoglobin 10.7 g/dL (12.2-16.2); Ketones,Urine Negative (Negative); Leukocyte Esterase,Urine Negative (Negative); Lymphocytes # 2.1 K/mm3 (0.7-4.5); Mean Corpuscular HGB Conc 31.7 g/dL (31.8-35.4); Mean Corpuscular Hemoglobin 29.7 pg (27.0-31.2); Mean Corpuscular Volume 93.9 fl (81-99); Mean Platelet Volume 10.9 fl (7.4-10.4); Monocytes # 0.5 K/mm3 (0.1-1.0); Monocytes % 7.8 % (1.7-9.3); Neutrophils # 3.4 K/mm3 (1.8-7.8); Neutrophils % 54.4 % (37.0-80.0); Nitrate,Urine Negative (Negative); Platelet Count 287 K/mm3 (142-424); Protein,Urine Negative (Negative); Red Cell Distribution Width 13.1 % (11.5-17.5); Urobilinogen,Urine 0.2 EU/dl (0.2); White Blood Count 6.3 K/mm3 (4.8-10.8)
[2024-07-24 11:56] LABS: Bacteria,Urine Trace /lpf; Squamous Epithelial Cell,Urine Occasional #/hpf (0-5)
[2024-07-24 12:11] LABS: Albumin Level 3.7 g/dl (3.5-5.0); Anion Gap 13.9 mEq/L (5-15); Blood Urea Nitrogen 42 mg/dl (7-17); Calcium 8.6 mg/dl (8.4-10.2); Carbon Dioxide 28 mmol/L (22.0-30.0); Chloride 103 mmol/L (98-107); Estimated Glomerular Filt Rate 18 ml/min (>60); GFR (African American) 21 ML/MIN (>60); Glucose 89 mg/dl (74-100); Phosphorous 4.2 mg/dl (2.5-4.5); Potassium 3.9 mmoL/L (3.5-5.1); Sodium 141 mmol/L (136-145)
[2024-07-24 12:19] LABS: Iron 94 ug/dL (37-170)
[2024-07-24 12:23] LABS: Intact Parathyroid Hormone 97.1 pg/mL (7.5-53.5)
[2024-07-24 12:28] LABS: Total Iron Binding Capacity 239 ug/dL (265-497)
== END 2024-07-24 23:59 | disposition home or self-care (01) ==
LOC: LAB 11:11
PROVIDERS: PCP Family Medicine; Visit Provider Internal Medicine Nephrology
DX: D64.9 Anemia, unspecified (principal); N25.81 Secondary hyperparathyroidism of renal origin; N18.4 Chronic kidney disease, stage 4 (severe)
CPT/HCPCS: 36415; 80069; 81001; 83540; 83550; 83970; 85025

== ENCOUNTER 2024-08-03 10:35 | Outpatient (CLI) | payer MEDICARE, OTHER, SELFPAY ==
--- NOTE | 2024-08-03 10:40 | NM_ITS ---
FINAL REPORT CLINICAL HISTORY: HYPERPARATHYROIDISM COMPARISON: None FINDINGS: 20.9 mci Technetium Sestamibi was administered. Planar imaging was performed early and two-hour delayed of the neck and upper thorax. Early imaging shows physiologic uptake within the upper neck involving the salivary glands and lower neck involving the thyroid gland. On delayed imaging there is no abnormal retained activity in the lower neck or mediastinum to localize parathyroid adenoma. IMPRESSION: No scintigraphic evidence of parathyroid adenoma. Reviewed, Interpreted and Dictated by Rosalio Cheung MD Transcribed by Carmenza Cummings Authenticated and [facility]
[2024-08-03] MEDS: SODIUM CHLORIDE 0.9% 10ML SYR (RAD ONLY) 10 ML IV (11:40)
[2024-08-03] MEDS: ISO TC99M (SESTAMIBI);1 DOSE VIAL IV (11:40)
== END 2024-08-03 23:59 | disposition home or self-care (01) ==
LOC: RAD 10:36
PROVIDERS: PCP Family Medicine; Visit Provider Internal Medicine Nephrology
DX: N25.81 Secondary hyperparathyroidism of renal origin (principal)
CPT/HCPCS: 78070; A9500

== ENCOUNTER 2024-11-05 11:22 | Outpatient (CLI) | payer MEDICARE, OTHER, SELFPAY ==
[2024-11-05 11:32] LABS: Microscopic, Urine URINE MICROSCOPIC (MICROSCOPIC)
[2024-11-05 11:52] LABS: Basophils % 0.5 % (0.1-2.0); Eosinophils # 0.2 Kmm3 (0.0-0.4); Hematocrit 33.2 % (37.0-47.0); Hemoglobin 10.6 g/dL (12.2-16.2); Immature Granulocytes # 0.01 10^3uL; Immature Granulocytes % 0.2 %; Lymphocytes # 1.7 K/mm3 (0.7-4.5); Lymphocytes % 27.2 % (10-50); Mean Corpuscular HGB Conc 31.9 g/dL (31.8-35.4); Mean Corpuscular Hemoglobin 29.9 pg (27.0-31.2); Mean Corpuscular Volume 93.8 fl (81-99); Mean Platelet Volume 10.2 fl (7.4-10.4); Monocytes # 0.7 K/mm3 (0.1-1.0); Monocytes % 10.7 % (1.7-9.3); Neutrophils # 3.7 K/mm3 (1.8-7.8); Neutrophils % 58.4 % (37.0-80.0); Nucleated Red Blood Cells # 0 10^3/uL; Nucleated Red Blood Cells % 0 %; Platelet Count 299 K/mm3 (142-424); Red Blood Count 3.54 M/mm3 (4.20-5.40); Red Cell Distribution Width 13.5 % (11.5-17.5); Red Cell Distribution Width-SD 46.5 fL; White Blood Count 6.4 K/mm3 (4.8-10.8)
[2024-11-05 12:26] LABS: Calcium 8.9 mg/dl (8.4-10.2); Carbon Dioxide 25 mmol/L (22.0-30.0); Glucose 91 mg/dl (74-100); Potassium 4.1 mmoL/L (3.5-5.1); Sodium 139 mmol/L (136-145)
[2024-11-05 12:27] LABS: Albumin Level 3.8 g/dl (3.5-5.0); Anion Gap 12.1 mEq/L (5-15); Blood Urea Nitrogen 54 mg/dl (7-17); Chloride 106 mmol/L (98-107); Estimated Glomerular Filt Rate 17 ml/min (>60); GFR (African American) 20 ML/MIN (>60); Phosphorous 5.1 mg/dl (2.5-4.5)
[2024-11-05 12:38] LABS: Intact Parathyroid Hormone 82.3 pg/mL (7.5-53.5)
[2024-11-05 12:43] LABS: Appearance,Urine CLEAR (Clear); Bilirubin,Urine Negative (Negative); Blood, Urine Negative (Negative); Color,Urine YELLOW (Yellow); Glucose,Urine (UA) Negative (Negative); Ketones,Urine Negative (Negative); Leukocyte Esterase,Urine Negative (Negative); Nitrate,Urine Negative (Negative); PH,Urine 6.5 (5.0-8.5); Protein,Urine 1+ (Negative); Urobilinogen,Urine 0.2 EU/dl (0.2)
[2024-11-05 13:13] LABS: Creatinine,Urine Random 60 mg/dL (Not Estab.)
== END 2024-11-05 23:59 | disposition home or self-care (01) ==
LOC: LAB 11:23
PROVIDERS: PCP Family Medicine; Visit Provider Internal Medicine Nephrology
DX: N18.4 Chronic kidney disease, stage 4 (severe) (principal); I12.9 Hypertensive chronic kidney disease with stage 1 through stage 4 chronic kidney disease, or unspecified chronic kidney disease
CPT/HCPCS: 36415; 80069; 81001; 82570; 83970; 84156; 85025

== ENCOUNTER 2025-03-04 12:35 | Outpatient (CLI) | payer MEDICARE, OTHER, SELFPAY ==
--- OUTSIDE RECORDS SUMMARY | 2025-03-04 12:37 | XMS_ITS | Clinical Summary ---
Author Organization [facility] Address [address] [place] [id number] Care Team Providers Care Port Cdl A Driver Name Role Phone Gerry Morgan MD Primary Care Provider + Allergies Active Allergy Reactions Criticality Noted Date Comments Nsaids Other (See Comments) Low 10/19/2021 Avoid due to kidney disease Medications aspirin 81 MG EC tablet Take 1 tablet by mouth Daily. Active vitamin B-12 (CYANOCOBALAMIN) 1000 MCG tablet Take 1 tablet by mouth Daily. Active ferrous sulfate 324 (65 Fe) MG tablet delayed-release EC tablet Take 1 tablet by mouth Every Other Day. Active allopurinol (ZYLOPRIM) 100 MG tabletIndication s:Hyperuricemia Take 0.5 tablets by mouth Daily. 15 tablet 01/12/20 24 Active Misc. Devices (Rollator Ultra-Light) miscIndications: Arthritis of right hip Use daily 1 each 04/13/20 24 Active amLODIPine (NORVASC) 10 MG tabletIndication s:Essential hypertension Take 1 tablet by mouth Daily. 30 tablet 11/16/19 25 Active escitalopram (LEXAPRO) 10 MG tabletIndication s:Generalized anxiety disorder Take 1 tablet by mouth Daily. 30 tablet 11/16/19 25 Active pravastatin (PRAVACHOL) 20 MG tabletIndication s:Type 2 diabetes mellitus with stage 4 chronic kidney disease, without long-term current use of insulin Take 1 tablet by mouth Daily. 30 tablet 11/16/19 25 Active QUEtiapine (SEROquel) 25 MG tabletIndication s:Generalized anxiety disorder Take 1 tablet by mouth every night at bedtime. 30 tablet 11/16/19 25 Active losartan (COZAAR) 50 MG tabletIndication s:Essential hypertension TAKE 1 TABLET BY MOUTH DAILY. 30 tablet 10 02/12/20 25 Active losartan (COZAAR) 50 MG tabletIndication s:Essential hypertension Take 1 tablet by mouth Daily. 30 tablet 11 01/12/20 24 025 Discontinued Active Problems Problem Noted Date Diagnosed Date Paroxysmal atrial fibrillation 01/12/2024 Bilateral hearing loss 05/13/2022 Heart murmur 05/13/2022 Assessment & Plan (05/13/2022 12:58 PM EST): Obtain echocardiogram results from [facility] with further decision-making after. Consider repeat testing if there was any aortic valve abnormality due to increasing pulsatile sensation in the carotids Hypothyroidism 05/13/2022 Assessment & Plan (05/13/2022 12:58 PM EST): Condition is stable but requires surveillance TSH which was ordered today CKD (chronic kidney disease) stage 4, GFR 15-29 ml/min 10/19/2021 Assessment & Plan (05/13/2022 12:56 PM EST): Renal condition is worsening. Continue current treatment regimen. Medication adjustments per nephrology Renal condition will be reassessed To be determined by application integration architect. Type 2 diabetes mellitus wit h stage 4 chronic kidney disease, without long-term current use of insulin 10/19/2021 Assessment & Plan (05/13/2022 12:57 PM EST): Renal condition is unchanged. Continue current treatment regimen. Renal condition will be reassessed in 6 months. Essential hypertension 10/19/2021 Assessment & Plan (05/13/2022 12:56 PM EST): Hypertension is improving with treatment. Continue current treatment regimen. Dietary sodium restriction. Blood pressure will be reassessed at the next regular appointment. No changes to patient's regimen. Believe metoprolol poses more risk for bradycardia than its impact on blood pressure Generalized anxiety disorder 10/19/2021 Encounters Date Type Department Care Team Description 02/10/2025 Refill [facility] [address] [place] [address] Gerry Morgan MD Essential hypertension from Last 3 Months Family History Medical History Relation Name Comments Cancer Brother thyroid, colon Diabetes Father Stroke Father Heart attack Mother Heart disease Mother Thyroid disease Mother Relation Name Status Comments Brother Father Mother Social History Tobacco Use Types Packs/Day Years Used Date Smoking Tobacco: Never Smokeless Tobacco: Never Tobacco Cessation:Counseling Given: Not Answered Alcohol Use Standard Drinks/Week Comments Never 0 (1 standard drink = 0.6 oz pur e alcohol) PHQ-2 Answer Date Recorded Retired PHQ-9: Brief Depression Severity Measure Score 2 10/19/2021 PHQ-2 Answer Date Recorded Patient Health Questionnaire-2 Score 0 11/15/2024 Comments Unknown Sex and Gender Information Value Date Recorded Sex Assigned at Not on file Legal Sex Female 11:02 AM EDT Gender Identity Not on file Sexual Orientation Not on file Last Filed Vital Signs Vital Sign Reading Time Taken Comments Blood Pressure 142/62 11/15/2024 9:41 AM EDT Pulse 51 11/15/2024 9:41 AM EDT Temperature 36.3 C (97.3 F) 11/15/2024 9:41 AM EDT Respiratory Rate 14 11/15/2024 9:41 AM EDT Oxygen Saturation 97% 11/15/2024 9:41 AM EDT Inhaled Oxygen Concentration - - Weight 73.3 kg (161 lb 9.6 oz) 11/15/2024 9:41 A M EDT Height 157.5 cm (5' 2 ) 11/15/2024 9:41 AM EDT Body Mass Index 29.56 11/15/2024 9:41 AM EDT Plan of Treatment Upcoming Encounters Date Type Department Care Team (Late st Contact Info) Description 06/07/2025 10:15 AM EST Office Visit [facility] [address] [address] Gerry Morgan MD [address] [place] [address] Health Maintenance Due Date Last Done Comments DXA SCAN 1942 URINE MICROALBUMIN-CREATININ E RATIO (uACR) 1952 Pneumococcal Vaccine 50+ (1 of 2 - PCV) 1961 TDAP/TD VACCINES (1 - Tdap) 1961 ZOSTER VACCINE (1 of 2) 1992 RSV Vaccine - Adults (1 - 1- dose 75+ series) 2017 DIABETIC FOOT EXAM 01/07/2024 01/06/2023, 0 01/06/2023, 01/06/2023 COVID-19 Vaccine (1 - 2023-2 5 season) 2025 INFLUENZA VACCINE 03/27/2025 ANNUAL WELLNESS VISIT 04/13/2025 04/13/2024, 024 HEMOGLOBIN A1C 05/18/2025 11/15/2024, 03/27, 01/12/2024, Additional history exists DIABETIC EYE EXAM 09/10/2025 09/10/2024, , 05/28/2022, Additional history exists Procedures Procedure Name Priority Date/Time Associated Diagnosis Comments HEMOGLOBIN A1C Routine 11/15/2024 10:25 AM EDT Type 2 diabetes mellitus with stage 4 chronic kidney disease, without long-term current use of insulin from Last 3 Months or Most Recently Relevant to Health Maintenance Results * (ABNORMAL) Hemoglobin A1c (11/15/2024 10:25 AM EDT) [facility] Hemoglobin A1C 5.80(H) 4.80 - 5.60 % [facility] Comment: Hemoglobin A1C Ranges: Increased Risk for Diabetes 5.7% to 6.4% Diabetes >= 6.5% Diabetic Goal < 7.0% Blood 11/15/2024 10:2 5 AM EDT 11/15/2024 Narrative [facility] ([facility]) - 11/16/2024 3:07 AM EDT Performed at: [address] [place] [id number] [place]: Melvin Beyer MD, Phone: [phone] Patient Fasting: Y us Gerry Morgan MD LAB BLOOD ORDERABLES Fin al Result [facility] ([facility]) [address] [place] [address], [place] [phone] [facility] [address] [place] [address], from Last 3 Months or Most Recently Relevant to Health Maintenance Insurance MEDICARE A & B Member Subscriber Plan / Payer (Ef fective 2007-Present) Name:Archie Brownlis Member ID:[id number] Relation to Subscriber:Self Name:Debby Brown Subscriber ID:[id number] Payer ID:[id number] Group ID:Not on file Type:Not on file Address: [facility] [id number] [address] [place] Care Teams Port Cdl A Driver Relationship Specialty Start Date End Date Gerry Morgan MD [address] [facility] [place] [address] PCP - General Family Medicine 10/19/21
--- OUTSIDE RECORDS SUMMARY | 2025-03-04 12:37 | XMS_ITS | Encounter Summary ---
Author Organization [facility] Address [address] [place] [id number] Care Team Providers Care Aerodynamic Consultant Name Role Phone Gerry Morgan MD Primary Care Provider + Reason for Visit * Reason Comments Med Refill Encounter Details Date Type Department Care Team (Late Contact Info) Description 02/10/2025 Refill [facility] [address] [place] [address] Gerry Morgan MD [address] [place] [address] Essential hypertension Social History Tobacco Use Types Packs/Day Years Used Date Smoking Tobacco: Never Smokeless Tobacco: Never Alcohol Use Standard Drinks/Week Comments Never 0 [...] on file Sexual Orientation Not on file documented as of this encounter Plan of Treatment Upcoming Encounters Date Type Department Care Team (Late st Contact Info) Description 06/07/2025 10:15 AM EST Office Visit [facility] [address] [place] [address] Gerry Morgan MD [address] [place] [address] documented as of this encounter Visit Diagnoses Diagnosis Essential hypertension Unspecified essential hypertension documented in this encounter Care Teams Aerodynamic Consultant Relationship Specialty Start Date End Date Gerry Morgan MD [address] [place] [address] PCP - General Family Medicine 10/19/21 documented as of this encounter
--- OUTSIDE RECORDS SUMMARY | 2025-03-04 12:38 | XMS_ITS | Encounter Summary ---
Author Organization [facility] Address [address] [place] [id number] Care Team Providers Care Chief Engineer Name Role Phone Gerry Morgan MD Primary Care Provider + Encounter Details Date Type Department Care Team (Late Contact Info) Description 11/16/2024 Results Follow-Up [facility] [address] [place] [address] Gerry Morgan MD [address] [place] [address] Social History Tobacco Use Types Packs/Day Years [...] Description 06/07/2025 10:15 AM EST Office Visit [facility] [address] [place] [address] Gerry Morgan MD [address] [place] [address] documented as of this encounter Visit Diagnoses Not on filedocumented in this encounter Care Teams Chief Engineer Relationship Specialty Start Date End Date Gerry Morgan MD [address] [place] [address] PCP - General Family Medicine 10/19/21 documented as of this encounter
[2025-03-04 13:17] LABS: Albumin Level 3.8 g/dl (3.5-5.0); Chloride 108 mmol/L (98-107); Sodium 141 mmol/L (136-145)
[2025-03-04 13:18] LABS: Potassium 4.6 mmoL/L (3.5-5.1)
[2025-03-04 13:20] LABS: Anion Gap 10.6 mEq/L (5-15); Blood Urea Nitrogen 42 mg/dl (7-17); Carbon Dioxide 27 mmol/L (22.0-30.0); Creatinine,Serum 2.20 mg/dl (0.52-1.04); Estimated Glomerular Filt Rate 21 ml/min (>60); GFR (African American) 26 ML/MIN (>60); Phosphorous 4.4 mg/dl (2.5-4.5)
[2025-03-04 13:21] LABS: Calcium 9.6 mg/dl (8.4-10.2); Glucose 89 mg/dl (74-100)
[2025-03-04 13:34] LABS: 25-OH Vitamin D, Total 26.3 ng/mL (30-100)
== END 2025-03-04 23:59 | disposition home or self-care (01) ==
LOC: LAB 12:36
PROVIDERS: PCP Family Medicine; Visit Provider Internal Medicine Nephrology
DX: N18.4 Chronic kidney disease, stage 4 (severe) (principal); N25.81 Secondary hyperparathyroidism of renal origin; E83.51 Hypocalcemia
CPT/HCPCS: 36415; 80069; 82306; 83970

== ENCOUNTER 2025-06-25 11:59 | Outpatient (CLI) | payer MEDICARE, OTHER, SELFPAY ==
--- OUTSIDE RECORDS SUMMARY | 2025-06-25 12:02 | XMS_ITS | Clinical Summary ---
Author Organization [facility] Address [address] [place] [id number] Care Team Providers Care Director Of Curriculum Name Role Phone Gerry Morgan MD Primary [...] Other Day. Active allopurinol (ZYLOPRIM) 100 MG tabletIndications :Hyperuricemia Take 0.5 tablets by mouth Daily. 15 tablet 4 Active Misc. Devices (Rollator Ultra-Light) miscIndications:A rthritis of right hip Use daily 1 each 4 Active amLODIPine (NORVASC) 10 MG tabletIndications :Essential hypertension Take 1 tablet by mouth Daily. 30 tablet 5 Active escitalopram (LEXAPRO) 10 MG tabletIndications :Generalized anxiety disorder Take 1 tablet by mouth Daily. 30 tablet 5 Active pravastatin (PRAVACHOL) 20 MG tabletIndications :Type 2 diabetes mellitus with stage 4 chronic kidney disease, without long-term current use of insulin Take 1 tablet by mouth Daily. 30 tablet 5 Active QUEtiapine (SEROquel) 25 MG tabletIndications :Generalized anxiety disorder Take 1 tablet by mouth every night at bedtime. 30 tablet 5 Active losartan (COZAAR) 50 MG tabletIndications :Essential hypertension TAKE 1 TABLET BY MOUTH DAILY. 30 tablet 10 5 Active Active Problems Problem Noted Date Diagnosed Date Paroxysmal atrial fibrillation 01/12/2024 Bilateral hearing loss 05/13/2022 Heart murmur 05/13/2022 Assessment & Plan (05/13/2022 12:58 PM EST): Obtain echocardiogram results from [facility] with further decision-making after. Consider repeat testing [...] will be reassessed To be determined by frame pulley mortising machine operator. Type 2 diabetes mellitus wit h stage [...] on blood pressure Generalized anxiety disorder 10/19/2021 Family History Medical History Relation Name Comments [...] 11/15/2024 9:41 AM EDT Plan of Treatment Health Maintenance Due Date Last Done Comments DXA SCAN 1942 COVID-19 Vaccine (#1) 1947 URINE MICROALBUMIN-CREATININ E RATIO (uACR) 1952 Pneumococcal Vaccine 50+ (1 of 2 - PCV) 1961 TDAP/TD VACCINES (1 - Tdap) 1961 ZOSTER VACCINE (1 of 2) 1992 RSV Vaccine - Adults (1 - 1- dose 75+ series) 2017 DIABETIC FOOT EXAM 01/07/2024 01/06/2023, 0 01/06/2023, 01/06/2023 INFLUENZA VACCINE 01/25/2025 ANNUAL WELLNESS VISIT 04/13/2025 04/13/2024, 024 HEMOGLOBIN A1C 05/18/2025 11/15/2024, 03/27, 01/12/2024, Additional history exists DIABETIC EYE EXAM 03/13/2026 03/13/2025, , 03/12/2024, Additional history exists Procedures Procedure Name Priority Date/Time Associated Diagnosis Comments HEMOGLOBIN A1C Routine 11/15/2024 10:25 AM EDT Type 2 diabetes mellitus with stage 4 chronic kidney disease, without long-term current use of insulin from Last 3 Months or Most Recently Relevant to Health Maintenance Results * (ABNORMAL) Hemoglobin A1c (11/15/2024 10:25 AM EDT) Hemoglobin A1C 5.80(H) 4.80 - 5.60 % [facility] Comment: Hemoglobin A1C Ranges: Increased Risk for Diabetes 5.7% to 6.4% Diabetes >= 6.5% Diabetic Goal < 7.0% Blood 11/15/2024 10:2 5 AM EDT 11/15/2024 Narrative [facility] ([facility]) - 11/16/2024 3:07 AM EDT Performed at: [address] [place] [id number] Automatic Outsole Cutter: Melvin Beyer MD, Phone: [phone] Patient Fasting: Y Gerry Morgan MD LAB BLOOD ORDERABLES Fin al Result [facility] ([facility]) [address] [place] [address], [facility] [address] [place] [address], from Last 3 Months or Most Recently Relevant to Health Maintenance Insurance MEDICARE A & B Member Subscriber Plan / Payer (Ef fective 2007-Present) Name:Debby Brown Member ID:[id number] Relation to Subscriber:Self Name:Debby Brown Subscriber ID:[id number] Payer ID:[id number] Group ID:Not on file Type:Not on file Address: [address] [place] Care Teams Director Of Curriculum Relationship Specialty Start Date End Date Gerry Morgan MD [address] [place] [address] PCP - General Family Medicine 10/19/21
--- OUTSIDE RECORDS SUMMARY | 2025-06-25 12:02 | XMS_ITS | Encounter Summary ---
Author Organization [facility] Address [address] [place] [address] Care Team Providers Care Explosive Ordnance Technician Name Role Phone Gerry Morgan MD Primary Care Provider + Encounter Details Date Type Department Care Team (Late st Contact Info) Description 11/16/2024 Results Follow-Up [facility] [address] [place] [address] Gerry Morgan MD [address] [place] [address] Social History Tobacco Use Types [...] as of this encounter Plan of Treatment Not on file documented as of this encounter Visit Diagnoses Not on filedocumented in this encounter Care Teams Explosive Ordnance Technician Relationship Specialty Start Date End Date Gerry Morgan MD [address] [place] [address] PCP - General Family Medicine 10/19/21 documented as of this encounter
[2025-06-25 12:07] LABS: Microscopic, Urine URINE MICROSCOPIC (MICROSCOPIC)
[2025-06-25 12:31] LABS: Bilirubin,Urine Negative (Negative); Color,Urine YELLOW (Yellow); Glucose,Urine (UA) Negative (Negative); Ketones,Urine Negative (Negative); Leukocyte Esterase,Urine Negative (Negative); PH,Urine 6.0 (5.0-8.5); Protein,Urine 2+ (Negative); Specific Gravity, Urine 1.020 (1.005-1.030); Urobilinogen,Urine 0.2 EU/dl (0.2)
[2025-06-25 12:37] LABS: Hematocrit 35.1 % (37.0-47.0); Hemoglobin 11.2 g/dL (12.2-16.2); Immature Granulocytes % 0.2 %; Mean Corpuscular HGB Conc 31.9 g/dL (31.8-35.4); Mean Corpuscular Hemoglobin 30.3 pg (27.0-31.2); Mean Corpuscular Volume 94.9 fl (81-99); Nucleated Red Blood Cells % 0 %; Platelet Count 300 K/mm3 (142-424); Red Blood Count 3.70 M/mm3 (4.20-5.40); Red Cell Distribution Width-SD 45.8 fL; White Blood Count 6.1 K/mm3 (4.8-10.8)
[2025-06-25 12:51] LABS: Albumin Level 3.9 g/dl (3.5-5.0); Chloride 105 mmol/L (98-107); Potassium 4.2 mmoL/L (3.5-5.1); Sodium 141 mmol/L (136-145)
[2025-06-25 12:54] LABS: Anion Gap 11.2 mEq/L (5-15); Blood Urea Nitrogen 45 mg/dl (7-17); Calcium 9.6 mg/dl (8.4-10.2); Carbon Dioxide 29 mmol/L (22.0-30.0); Creatinine,Serum 2.60 mg/dl (0.52-1.04); Estimated Glomerular Filt Rate 18 ml/min (>60); GFR (African American) 21 ML/MIN (>60); Glucose 104 mg/dl (74-100); Iron 74 ug/dL (37-170); Phosphorous 4.8 mg/dl (2.5-4.5)
[2025-06-25 13:04] LABS: Total Iron Binding Capacity 222 ug/dL (265-497)
[2025-06-25 13:27] LABS: Uric Acid 6.7 mg/dl (2.5-6.2)
[2025-06-25 13:29] LABS: Ferritin 297 ng/ml (11.1-264)
[2025-06-25 13:46] LABS: Bacteria,Urine Trace /lpf; WBC,Urine Occasional #/hpf (0-3)
== END 2025-06-25 23:59 | disposition home or self-care (01) ==
LOC: LAB 12:00
PROVIDERS: PCP Family Medicine; Visit Provider Internal Medicine Nephrology
DX: D64.9 Anemia, unspecified (principal); N18.4 Chronic kidney disease, stage 4 (severe); M10.9 Gout, unspecified
CPT/HCPCS: 36415; 80069; 81001; 82570; 82728; 83540; 83550; 84156; 84550; 85025